=== PATIENT | female | born 1965 | race Caucasian/White ===

== ENCOUNTER 2017-02-10 15:12 | Outpatient (CLI) | payer OTHER, MEDICARE ==
--- NOTE | 2017-02-10 17:24 | MMO ---
BILATERAL MAMMOGRAMS: DATE: 02/10/17 HISTORY: Screening mammography. COMPARISON: Baseline study. FINDINGS: Scattered fibroglandular densities and benign-appearing calcifications are present. There is no latoya nant mass or suspicious calcifications. The study was evaluated with the assistance of computer-aided detection. IMPRESSION: BIRADS 1: Negative Suggest routine follow-up. POS: JAMEY
== END 2017-02-10 15:13 | disposition home or self-care (01) ==
LOC: MAMMO 15:12
PROVIDERS: ATTEND Family Medicine
DX: Z12.31 Encounter for screening mammogram for malignant neoplasm of breast (principal)
CPT/HCPCS: 77067; G0202

== ENCOUNTER 2017-06-05 16:30 | Outpatient (CLI) | payer MEDICARE, OTHER | END 2017-06-05 16:31 | disposition home or self-care (01) | LOC: BICRAD 16:30 | PROVIDERS: ATTEND Family Medicine | DX: M54.6 Pain in thoracic spine (principal) | CPT/HCPCS: 72072 ==

== ENCOUNTER 2017-06-29 16:22 | Outpatient (CLI) | payer MEDICARE | END 2017-06-29 16:23 | disposition home or self-care (01) | LOC: CTENTCT 16:22 | PROVIDERS: ATTEND Otolaryngology Plastic Surgery within the Head & Neck | DX: J32.9 Chronic sinusitis, unspecified (principal) | CPT/HCPCS: 70486 ==

== ENCOUNTER 2017-07-01 09:33 | Day surgery (SDC) | payer MEDICARE ==
[2017-06-30 16:37] VITALS: BMI 44.4
[2017-07-01] MEDS ORDERED: Lidocaine 1% w/Epinephrine 1:200K 30 ML VIAL ONE (09:43)
[2017-07-01] MEDS ORDERED: Oxymetazoline HCl 0.05% ( 15 ML ) ONE ×2 (09:43→10:14)
[2017-07-01] MEDS ORDERED: Midazolam HCl 2 mg/2 ml Vial ONE (09:52)
[2017-07-01] MEDS ORDERED: Fentanyl 100 MCG/2 ML VIAL ONE ×4 (09:52→12:41)
[2017-07-01] MEDS ORDERED: Albuterol Sulfate HFA (OR ONLY) ONE (10:14)
[2017-07-01 11:14] LABS: Anion Gap 13 mmol/L (10-20); BUN (Urea Nitrogen) 18 mg/dL (9.8-20.1); Calc. Creatinine Clearance 168 mL/min (70-130); Calcium 8.9 mg/dL (7.8-10.44); Carbon Dioxide 27 mmol/L (22-29); Chloride 105 mmol/L (98-107); Estimated GFR-MDRD 79; Glucose 89 mg/dL (70-105); Potassium 4.1 mmol/L (3.5-5.1); Sodium 141 mmol/L (136-145)
[2017-07-01] MEDS ORDERED: Albuterol Sulfate 2.5 mg/3 ml Neb NEB PRN (12:23)
[2017-07-01] MEDS ORDERED: Promethazine HCl 25 MG/ML VIAL IM/IV PRN (12:23)
[2017-07-01] MEDS ORDERED: Ondansetron HCl/PF 4 MG/2 ML Vial IVP PRN (12:23)
[2017-07-01] MEDS ORDERED: Non-Formulary Medication 1 EACH PO PRN (12:23)
[2017-07-01] MEDS ORDERED: Promethazine HCl 25 MG/ML VIAL ONE (12:29)
[2017-07-01] MEDS ORDERED: Lidocaine 1% PF 5 ML VIAL ONE (15:59)
[2017-07-01] MEDS ORDERED: PROPOFOL 200 MG/20 ML VIAL ONE (15:59)
[2017-07-01] MEDS ORDERED: diphenhydrAMINE 50 MG/ML VIAL ONE (15:59)
[2017-07-01] MEDS ORDERED: PHENYLEPHRINE-NS 100 MCG/ML 10 ML SYRINGE ONE (15:59)
[2017-07-01] MEDS ORDERED: Ondansetron HCl/PF 4 MG/2 ML Vial ONE (15:59)
[2017-07-01] MEDS ORDERED: Succinylcholine Chloride 20 MG/ML 10 ml SYRINGE FS ONE (15:59)
--- NOTE | 2017-07-02 17:32 | OP ---
The patient seen for chronic rhinosinusitis and nasal polyposis. PREOPERATIVE DIAGNOSES: 1. Chronic rhinosinusitis of the ethmoidal cells. 2. 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 3. Bilateral sinonasal polyposis, severe. POSTOPERATIVE DIAGNOSES: 1. Chronic rhinosinusitis of the ethmoidal cells. 2. 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 3. Bilateral sinonasal polyposis, severe. PROCEDURES: 1. Bilateral endoscopic sinus surgery, total ethmoidectomies. 2. Bilateral endoscopic sinus surgery, frontal sinusotomies. 3. Bilateral endoscopic sinus surgery, nasal polypectomy. SURGEON: Pranav Faith M.D. ESTIMATED BLOOD LOSS: 10 mL. COMPLICATIONS: None. ANESTHESIA: GETA. DESCRIPTION OF PROCEDURE: The patient was taken to the operating room and placed supine on the table . General endotracheal anesthesia was obtained by the Anesthesia staff. Tube was secured in the lef t lower lip. The patient was placed in the beach chair position. Afrin pledgets were then placed in the nasal cavity. Following this, the patient was prepped and draped for standard nasal procedure. The 0 degree endoscope was then advanced in the nasal cavity after Afrin pledgets were removed. 1% lidocaine with 1:100,000 epinephrine was injected via a 27 gauge needle into the lateral nasal wall a nd the remnant of the middle turbinates and nasal polyps bilaterally. Following this, the 0 degree m icrodebrider was used to remove nasal polyps and they completely obstructed the entire ethmoidal sinu ses. There was also residual bone remnants of the ethmoidal bulla and grand lamella area that were o pened. There was residual posterior ethmoidal and anterior bony cells causing obstruction which were removed using a biting Blakesley forceps and straight microdebrider. Following this, the 45 degree scope and the curved microdebrider were used to identify the frontal recess by removal of polyps. Th ere was remnant bone remaining in the frontal sinus causing obstruction of the frontal sinus ostia. This was removed using the curved microdebrider and upbiting Blakesley forceps. Following this, the thick gelatinous material was suctioned from the left frontal sinus. The nasal cavity was irrigated bilaterally. MeroPacks were placed in the middle meatus. The patient tolerated the procedure well.
--- NOTE | 2017-09-05 13:50 | EKG ---
Test Reason : PREOP Blood Pressure : / mmHG Vent. Rate : 076 BPM Atrial Rate : 076 BPM P-R Int : 176 ms QRS Dur : 094 ms QT Int : 408 ms P-R-T Axes : 057 063 027 degrees QTc Int : 459 ms Normal sinus rhythm Normal ECG When compared with ECG of 09-DEC-2016 20:58, QT has lengthened Confirmed by JOBY VAZQUEZ MD ([id number]) on 09/05/2017 1:49:47 PM Referred By: BETTY Confirmed By:JOBY VAZQUEZ MD
== END 2017-07-01 14:00 | disposition home or self-care (01) ==
LOC: SDC 09:33
PROVIDERS: ATTEND Otolaryngology Plastic Surgery within the Head & Neck
PROC: 09BV8ZZ Excision of Left Ethmoid Sinus, Via Natural or Artificial Opening Endoscopic (ICD-10-PCS; principal; 2017-07-01)
PROC: 09BU8ZZ Excision of Right Ethmoid Sinus, Via Natural or Artificial Opening Endoscopic (ICD-10-PCS; 2017-07-01)
PROC: 09BT8ZZ Excision of Left Frontal Sinus, Via Natural or Artificial Opening Endoscopic (ICD-10-PCS; 2017-07-01)
PROC: 09BS8ZZ Excision of Right Frontal Sinus, Via Natural or Artificial Opening Endoscopic (ICD-10-PCS; 2017-07-01)
DX: J32.8 Other chronic sinusitis (principal); J33.8 Other polyp of sinus; G43.909 Migraine, unspecified, not intractable, without status migrainosus; K21.9 Gastro-esophageal reflux disease without esophagitis; J44.9 Chronic obstructive pulmonary disease, unspecified; M19.90 Unspecified osteoarthritis, unspecified site; F31.9 Bipolar disorder, unspecified; M79.7 Fibromyalgia; G47.33 Obstructive sleep apnea (adult) (pediatric); I10 Essential (primary) hypertension; F17.210 Nicotine dependence, cigarettes, uncomplicated; Z86.73 Personal history of transient ischemic attack (TIA), and cerebral infarction without residual deficits; Z79.51 Long term (current) use of inhaled steroids; Z79.899 Other long term (current) drug therapy; Z88.8 Allergy status to other drugs, medicaments and biological substances; Z88.1 Allergy status to other antibiotic agents; Z88.0 Allergy status to penicillin; Z91.040 Latex allergy status; Z80.3 Family history of malignant neoplasm of breast; Z98.84 Bariatric surgery status; Z90.49 Acquired absence of other specified parts of digestive tract; Z90.710 Acquired absence of both cervix and uterus; Z98.1 Arthrodesis status; Z98.890 Other specified postprocedural states
CPT/HCPCS: 80048; 85014; 93005; 93010; 96374; J1200; J2001; J2250; J2405; J2550; J2704; J3010

== ENCOUNTER 2017-07-18 12:38 | Emergency (ER) | payer MEDICARE ==
[2017-07-18] MEDS ORDERED: Aspirin 325 MG TAB ONE (13:19)
== END 2017-07-18 13:21 | disposition home or self-care (01) ==
LOC: SCSER 12:38
DX: L03.116 Cellulitis of left lower limb (principal); J44.9 Chronic obstructive pulmonary disease, unspecified; F41.9 Anxiety disorder, unspecified; F31.9 Bipolar disorder, unspecified; Z87.891 Personal history of nicotine dependence
CPT/HCPCS: 99283

== ENCOUNTER 2017-08-01 14:26 | Inpatient (IN) | payer MEDICARE ==
[2017-08-01] MEDS ORDERED: Ketorolac Tromethamine 30 MG/ML VIAL ONE (14:53)
[2017-08-01] MEDS ORDERED: Metoclopramide HCl 10 MG/2 ML VIAL ONE (14:53)
[2017-08-01] MEDS ORDERED: diphenhydrAMINE 50 MG/ML VIAL ONE (14:53)
[2017-08-01] MEDS ORDERED: methylPREDNISolone Sod Succ/PF 125 MG/2 ML VIAL ONE (15:35)
[2017-08-01] MEDS ORDERED: Magnesium Sulfate 2 GM/NS 0.9% 50 ML BAG ONE (15:35)
[2017-08-01 16:25] LABS: Anion Gap 15 mmol/L (10-20); BUN (Urea Nitrogen) 43 mg/dL (9.8-20.1); Calc. Creatinine Clearance 0 mL/min (70-130); Calcium 8.4 mg/dL (7.8-10.44); Carbon Dioxide 23 mmol/L (22-29); Chloride 107 mmol/L (98-107); Estimated GFR-MDRD 51; Glucose 101 mg/dL (70-105); Potassium 3.9 mmol/L (3.5-5.1); Sodium 141 mmol/L (136-145)
[2017-08-01 18:13] LABS: #Basophils 0.2 thou/uL (0.0-0.2); #Eosinphils 0.7 thou/uL (0.0-0.7); #Monocytes 0.7 thou/uL (0.11-0.59); #Neutrophils 3.7 thou/uL (1.40-6.50); %Basophils 2.2 % (0.0-1.0); %Eosinophils 10.2 % (0.0-10.0); %Lymphocytes 26.9 % (21.0-51.0); %Monocytes 9.9 % (0.0-10.0); %Neutrophils 50.8 % (42.0-75.0); Hemoglobin 12.7 g/dL (12.0-16.0); Mean Corpuscular HGB CONC 33.4 g/dL (32.0-36.0); Mean Corpuscular Hemoglobin 30.1 pg (27.0-31.0); Mean Corpuscular Volume 90.1 fl (81.0-99.0); Mean Platelet Volume 7.5 fL (7.4-10.4); Platelet Count 215 thou/uL (130-400); RBC Distribution Width 12.8 % (11.5-14.5); White Blood Cell (WBC) Count 7.4 thou/uL (4.8-10.8)
[2017-08-01 19:12] LABS: Bilirubin Negative (Negative); Blood, Urine Trace (Negative); Clarity Cloudy (Clear); Glucose, Urine (Dipstick) Negative (Negative); Leukocyte Large (Negative); Nitrite Negative (Negative); Protein, Urine (Dipstick) Negative (Neg-Trace); Urobilinogen 0.2 mg/dL (0.2-1.0); pH, Urine 5.5 (5.0-9.0)
[2017-08-01 19:17] LABS: Bacteria/HPF 3+ HPF (None Seen); Squamous Epithelial 0-3 HPF (0-3)
[2017-08-01] MEDS ORDERED: Ondansetron HCl/PF 4 MG/2 ML Vial IVP PRN (20:05)
[2017-08-01] MEDS ORDERED: Ondansetron ODT 4 MG TAB SL PRN (20:05)
[2017-08-01] MEDS ORDERED: Acetaminophen 325 MG TAB PO PRN (20:05)
--- NOTE | 2017-08-01 21:40 | HP ---
PRIMARY CARE PHYSICIAN: Dr. Kaiden Bravo. CHIEF COMPLAINT: Headache and weakness. HISTORY OF PRESENT ILLNESS: This is a 52-year-old obese female with multiple medical problems who pr esented to the Emergency Department with intractable headache, pain, overall weakness, difficulty sta nding and worsening debility, presented to the Emergency Department after worsening headache, nausea, and weakness. The patient has a long history of persistent nausea for the past 2 years, and she yvette es daily Phenergan in addition to her regular maintenance medicines for her persistent nausea. She h ad seen a Gastroenterology in the past and states that she has had relief of her nausea with followin g EGD. The patient states that she was in usual state of health about 2-3 days ago, she developed a typical migraine. She usually has some visual changes with the migraines or nausea worsens. At this time, she developed increased weakness, needing a walker to get around the house. Yesterday, she co ntinued to have increased weakness, had difficulty getting around the house, had no falls, no loss of consciousness. She did vomit one time. Due to the persistent headache and weakness, she presented to the Emergency Department today for further evaluation. In the ED, she had her evaluation per the ER physician states her labs were normal, but she continues to feel badly and did not feel safe going home. She is now being admitted for further evaluation and treatment of her persistent headache and increased weakness. PAST MEDICAL HISTORY: Asthma, gastroesophageal reflux disease, persistent nausea, migraine headache, history of COPD, history of gastric dumping, Raynaud's phenomenon, chronic pain, and bipolar depress ion. MEDICATIONS: Include Benadryl 25 mg 1-2 daily, Flonase nasal spray 2 times a day, Symbicort 160/4.5 two puffs b.i.d., Zyrtec 10 mg daily, Latuda 120 mg daily, Lyrica 200 mg 3 times a day, montelukast 1 0 mg daily, Dexilant 60 mg daily, Bentyl 10 mg 4 times a day, Cogentin 2 mg 3 times a day, chlorzoxaz one 500 mg 3 times a day, hydroxyzine 60 mg 3 times a day, Phenergan 25 mg 2-3 times daily rectally, Fosteum 1 tab 2 times a day, Mucinex p.r.n., blair daily, Mag 64 400 mg daily, fish oil 1000 mg b.i. d., albuterol inhaler p.r.n., DuoNebs p.r.n., ergotamine p.r.n. ALLERGIES: LATEX, LEVAQUIN, PENICILLIN, QUINOLONE, STEROIDS, TRIPTAN. PAST SURGICAL HISTORY: Bilateral knee surgery, bilateral wrist surgery, gastric surgery, hysterectom y, C-spine, C4 and 5 fusion in 05/2015, left elbow repair in 2016, cholecystectomy, ulnar surgery rig ht elbow, and sinus surgery. SOCIAL HISTORY: Denies alcohol, denies drug use. Former tobacco, but quit smoking 10 years ago. Gloria ves at home with her . REVIEW OF SYSTEMS: As per the history of present illness. GENERAL: Denies any recent fevers or chills. HEENT: Denies cough, congestion, or runny nose. Her allergies seem to be under control. CARDIAC: Denies chest pain, shortness of breath or palpitations. PULMONARY: Denies cough or hemoptysis. Her asthma is under control as well. GASTROINTESTINAL: As per the history of present illness. No abdominal pain, but admits to persisten t nausea, occasional vomiting, and reflux symptoms. GENITOURINARY: Denies any pain or burning when she urinates. Denies hematuria. NEUROLOGIC: As per the history of present illness with increased weakness. PHYSICAL EXAMINATION: VITAL SIGNS: In the ER, temperature 98.1, pulse of 81, respirations 18-20, blood pressure 107/53, pu lse ox is 96% on room air. GENERAL: She is awake and alert. She is in no acute distress. She is cooperative for the exam. Mu cosa is moist. NECK: Supple. No JVD, adenopathy or bruits. HEART: Regular rate and rhythm. LUNGS: Clear bilaterally. No wheeze, rales or rhonchi. ABDOMEN: Obese, soft, nontender, nondistended. No hepatosplenomegaly. EXTREMITIES: No clubbing, cyanosis or edema, 2+ peripheral pulses bilaterally. NEUROLOGIC: Strength is 5/5 in upper and lower extremities. She ambulated in the levi with me with an unsteady gait, but no falls. No lateralizing signs. LABORATORY DATA: Urinalysis with trace blood, positive leukocyte esterase, too numerous to count whi te blood cells, 3+ bacteria. White blood cell count 7.4 thousand, hemoglobin and hematocrit 12.7 and 37.8, platelets of 215. Sodium 141, potassium 3.9, chloride 107, CO2 of 23, BUN and creatinine 43 a nd 1.12 with a GFR of 51. Serum glucose of 101, calcium of 84. ASSESSMENT AND PLAN: This is a 52-year-old female patient of Dr. Kaiden Bravo with multiple medic al problems now with increased headache and weakness. 1. Urinary tract infection. We will start antibiotics which may help with her weakness as well as h er poor p.o. intake. 2. Mild dehydration. We will start IV fluid replacement and watch her fluid balance. 3. Migraine headache. We will continue her usual medications, this seems to be improving at this ti me. 4. Bipolar depression. This has been worked up extensively in the past, both locally and in [place] with several different diagnoses that have been entertained and worked up. It seems most likely joy t she does have a dumping syndrome following her bariatric procedure years ago. I will continue medi cations as per GI and Dr. Bravo. 5. Bipolar depression. She is on Latuda. She will have to follow up with psychiatry. She may need to adjust that medication due to her increased nausea and weakness as well as it can have side effec ts. 6. Chronic pain. We will watch closely for narcotic medications due to her multiple other medicatio ns as well. 7. Weakness and deconditioning. She has had stays in inpatient rehab in the past. According to Dr. Bravo, we will initiate physical therapy and walking program as well. Dr. Braov has had ailyn rns about her taking antipsychotics with signs of tardive dyskinesia. She seemed to be controlled on the Cogentin at this time and will continue that as well.
[2017-08-01 21:50] VITALS: BMI 44.9
[2017-08-01] MEDS: Sodium Chloride 0.9% 1,000 ML IV SCH (22:52)
[2017-08-02] MEDS: Promethazine HCl 25 MG SUPP PR PRN ×3 (04:18→20:45)
[2017-08-02 05:48] LABS: ALT (SGPT) 19 U/L (8-55); AST (SGOT) 27 U/L (5-34); Albumin 3.5 g/dL (3.5-5.0); Alkaline Phosphatase 117 U/L (40-150); Anion Gap 15 mmol/L (10-20); BUN (Urea Nitrogen) 35 mg/dL (9.8-20.1); Bilirubin, Total 0.4 mg/dL (0.2-1.2); Calc. Creatinine Clearance 146 mL/min (70-130); Calcium 8.7 mg/dL (7.8-10.44); Carbon Dioxide 22 mmol/L (22-29); Chloride 109 mmol/L (98-107); Estimated GFR-MDRD 66; Globulin 3.4 g/dL (2.4-3.5); Glucose 88 mg/dL (70-105); Potassium 4.3 mmol/L (3.5-5.1); Protein, Total 6.9 g/dL (6.0-8.3); Sodium 142 mmol/L (136-145)
[2017-08-02] MEDS: Sodium Chloride 0.9% 1,000 ML IV SCH ×2 (08:27→16:12)
[2017-08-02] MEDS: Pregabalin 50 MG CAP PO SCH ×3 (08:56→20:38)
[2017-08-02] MEDS: Dicyclomine 10 MG CAP PO SCH ×4 (08:56→20:40)
[2017-08-02] MEDS: Benztropine 1 MG TAB PO SCH ×3 (08:56→20:39)
[2017-08-02] MEDS: Nitrofurantoin Monohyd/M-Cryst 100 MG CAP PO SCH ×2 (08:56→20:40)
[2017-08-02] MEDS ORDERED: Lurasidone HCl 40 MG TABLET PO SCH (09:00)
[2017-08-02] MEDS: HYDROmorphone 2 MG TAB PO PRN ×2 (10:44→18:59)
--- NOTE | 2017-08-02 12:41 | ULT ---
BILATERAL CAROTID DUPLEX ULTRASOUND INCLUDING COLOR AND SPECTRAL DOPPLER IMAGING: HISTORY: A 52-year-old female with a history of syncope. FINDINGS: Minimal intimal thickening and very mild plaque noted in the origins of the right and left ICA and CC A arteries. PSV right ICA 89 cm/s, EDV 34 cm/s. ICA/CCA ratio 0.8. PSV left ICA 81 cm/s, EDV 36 cm/s. ICA/CCA ratio 0.5. Vertebral flow is antegrade. IMPRESSION: Very mild intimal thickening and plaque, evidence for carotid artery arteriosclerotic disease. POS: JAMEYH
--- NOTE | 2017-08-02 13:41 | PRG ---
DATE OF SERVICE: 08/02/2017 SUBJECTIVE: Patient is complaining of a worsening headache. No relief with her ergotamine or other medicines. She is not able to have her typical pain medicine with a Nucynta due to her being out of prescriptions and not being on stock at the hospital. The patient states that she has had relief wit h Dilaudid in the past. She walked in the room with therapy. She continued to feel weak, but did no t fall. No dizziness. She continued to feel nauseous, but some improvement with IV fluids as well a s the Phenergan. She does not feel comfortable going home at this time. OBJECTIVE: VITAL SIGNS: Temperature 98.3, pulse is 71, respirations 16, blood pressure 113/78, pulse ox is 92%- 94% on room air. GENERAL: She is awake and alert, in no acute distress. Speech is clear. NECK: Supple. HEART: Regular rate and rhythm. LUNGS: Clear. ABDOMEN: Obese, soft, diffuse tenderness, no rebound, no guarding. EXTREMITIES: 2+ peripheral pulses bilaterally. LABORATORY DATA: Reviewed. Sodium 142, potassium 4.3, chloride 102, CO2 of 22, BUN and creatinine 3 5.89 with a GFR of 66, which is improved from 51 yesterday. Insulin level was only 8.2, calcium of 8 .7. Other liver enzymes are normal. Urinalysis positive for leukocyte esterase, positive for bacter ia, trace blood. Urine cultures are pending. Carotid Doppler is pending at this time as well. ASSESSMENT AND PLAN: 1. This is a 52-year-old female patient with multiple medical problems now with intractable migraine headache and increased weakness, near syncope, urinary tract infection. 2. Intractable migraine headache. We will try Dilaudid p.r.n. headache. Consult Neurology for furt her evaluation and treatment plan. 3. Urinary tract infection. We will continue Macrobid. We are waiting for cultures. 4. Mild dehydration is improved. We will continue to follow closely with her p.o. intake. 5. Bipolar depression. I had a discussion with her about medications. She was recently started on Latuda by her psychiatrist and may be related to her symptoms getting worse. We will stop the Latuda at this time and she has done well with lithium in the past as well and then will make consideration s of giving a trial of lithium once the Latuda is washed out. 6. Weakness and deconditioning. We will continue walking program and therapy. Hopefully, will impr ove with stopping the Latuda as well.
--- NOTE | 2017-08-02 14:55 | CON ---
DATE OF CONSULTATION: 08/02/2017 CHIEF COMPLAINT: Headache. HISTORY OF PRESENT ILLNESS: The patient reports she has had sudden onset headache yesterday. Usuall y, she has had migraine, history of migraines since age 11 and these were mostly associated with her menstrual periods over the years. She got used to the headaches and then about a few years ago, she decided to have hysterectomy in 2012 to make sure that she no longer has headaches. She went ahead a nd had a hysterectomy, but the headaches have gotten worse and she has persistent headaches on and of and she sees Dr. Senhtil Mitchell for her migraine headaches. The typical migraine she describes is on the right side of her head with subsequent generalization and she has photophobia and phonophobia wi th this. At this time, she came to the hospital because she had a sudden onset headache yesterday wh en she was having a good day and she had a headache right in the frontal area and she stated "if some one would cut my head off I would have offered that." It was a severe headache, which is unlike her typical migraines and it seemed to spread very quickly throughout her head and she came immediately t o the ER. She has known bipolar disorder as well and reports failure of Topamax, Lamictal and Depako te. She said Topamax made her have more migraines, Depakote caused her to throw up and she did not h ave any benefit from the Lamictal. The patient also felt generalized weakness with this episode. Aristeo lundberg stated to me that the only narcotic opiate seems to help and she was recently weaned off of all opi ates. PREVIOUS MEDICAL HISTORY: Significant for asthma, gastroesophageal reflux disease, nausea, migraine headache, COPD and she had gastric sleeve surgery and has side effects from that. CURRENT MEDICATIONS: At home, she takes Benadryl, Flonase, Symbicort, and Zyrtec. She is being wean ed off of Latuda due to tardive dyskinesia. Lyrica, Dexilant, Bentyl, Cogentin, chlorzoxazone, hydro xyzine, and Phenergan. ALLERGIES: She has allergic to LATEX, LEVAQUIN, QUINOLONE, STEROIDS, TRIPTAN and PENICILLINS. PAST SURGICAL HISTORY: Hysterectomy in 2012, C-spine surgery in 2016, left elbow repair, gastric sle jose surgery, knee surgeries bilaterally, wrist surgery and sinus surgery. FAMILY HISTORY: Positive for strokes. Her mother recently met her 2 other siblings, who she did not even know existed and she did genealogical studies and met them both recently and they know that the re is history of stroke in her family. Her grandmother also from a stroke. LABORATORY REPORTS: White count 7.4, hemoglobin 12.7, hematocrit 37.8, platelets 215. Chemistries: Sodium 142, potassium 4.3, chloride 109, bicarbonate 22, BUN 35, creatinine 0.89, glucose 88, ALT 11 9, AST 27, alkaline phosphatase 117, albumin 3.5, globulin 3.4 and her insulin level was 8.2. No amarilis ging studies available at this time. PHYSICAL EXAMINATION: VITAL SIGNS: Blood pressure 113/78, temperature 98.3, pulse 71, respiratory rate 16. GENERAL APPEARANCE: Well-built, well-nourished, slightly overweight lady. CHEST: Clear vesicular breathing. CARDIOVASCULAR: S1, S2 heard, no murmurs. Carotids are clear. ABDOMEN: Soft, nontender. NEUROLOGIC: Higher intellectual functions normal. Cranial nerves II-XII normal. Fundus exam normal . Normal extraocular movements. Normal sensation of face bilaterally. No facial asymmetry noted. Normal elevation of palate. Normal hearing to finger rub and tongue midline. Motor Exam: Bulk norm al, tone normal, strength 5/5 in iliopsoas, hamstrings, quadriceps, ankle dorsiflexion, plantar flexi on, deltoid, triceps, biceps, wrist extension and flexion, finger extension and flexion bilaterally. Sensory Exam: Normal touch, pinprick, proprioception, vibration, temperature and deep tendon reflex es were absent. Cerebellar: Normal [id number]-[id number] and [id number]. IMPRESSION: The patient is a 52-year-old lady with a history of longstanding migraine headaches. Aristeo lundberg had a sudden onset new headache, which was intense much different and severe compared to her usual headaches even threw up yesterday and had generalized feeling of weakness and inability to do much, w aixah brought her to the hospital. Her examination is normal neurologically. At this time, she seems to have an atypical headache, which is very much different from right frontal headaches, which are u sually associated with her migraine. RECOMMENDATIONS: 1. MRI of the brain. 2. She reports her pain is relieved with the current oral medicines she is receiving particularly Di laudid and the combination and we can continue that for now due to her failure with all the other med ications in the past. 3. I will have Neurology followup on this patient tomorrow.
[2017-08-02] MEDS ORDERED: Prochlorperazine Maleate 5 MG TAB PO PRN (15:11)
[2017-08-02] MEDS ORDERED: Montelukast Sodium 10 mg Tablet PO SCH (21:00)
[2017-08-02] MEDS: Mometasone/Formoterol 120 PUFF INHALER INH SCH (22:10)
[2017-08-03] MEDS: Sodium Chloride 0.9% 1,000 ML IV SCH ×3 (04:32→15:49)
[2017-08-03] MEDS: Promethazine HCl 25 MG SUPP PR PRN ×3 (05:35→16:45)
[2017-08-03 05:37] LABS: #Basophils 0.1 thou/uL (0.0-0.2); #Eosinphils 0.8 thou/uL (0.0-0.7); #Lymphocytes 2.2 thou/uL (1.20-3.40); #Monocytes 0.7 thou/uL (0.11-0.59); #Neutrophils 2.6 thou/uL (1.40-6.50); %Basophils 1.1 % (0.0-1.0); %Eosinophils 12.6 % (0.0-10.0); %Lymphocytes 34.6 % (21.0-51.0); %Monocytes 11.2 % (0.0-10.0); %Neutrophils 40.6 % (42.0-75.0); Hemoglobin 12.4 g/dL (12.0-16.0); Mean Corpuscular HGB CONC 32.8 g/dL (32.0-36.0); Mean Corpuscular Hemoglobin 31.4 pg (27.0-31.0); Platelet Count 217 thou/uL (130-400); RBC Distribution Width 12.5 % (11.5-14.5); Red Blood Cell (RBC) Count 3.95 mill/uL (4.20-5.40); White Blood Cell (WBC) Count 6.5 thou/uL (4.8-10.8)
[2017-08-03] MEDS: HYDROmorphone 2 MG TAB PO PRN ×2 (05:39→13:35)
[2017-08-03 06:01] LABS: Anion Gap 11 mmol/L (10-20); BUN (Urea Nitrogen) 22 mg/dL (9.8-20.1); Calc. Creatinine Clearance 164 mL/min (70-130); Calcium 8.5 mg/dL (7.8-10.44); Carbon Dioxide 22 mmol/L (22-29); Chloride 110 mmol/L (98-107); Estimated GFR-MDRD 76; Glucose 101 mg/dL (70-105); Potassium 4.2 mmol/L (3.5-5.1); Sodium 139 mmol/L (136-145)
[2017-08-03] MEDS: Mometasone/Formoterol 120 PUFF INHALER INH SCH (06:10)
[2017-08-03 07:54] VITALS: BP 128/74; TEMP 97.6
[2017-08-03] MEDS: Benztropine 1 MG TAB PO SCH ×2 (09:47→16:40)
[2017-08-03] MEDS: Nitrofurantoin Monohyd/M-Cryst 100 MG CAP PO SCH (09:48)
[2017-08-03] MEDS: Pregabalin 50 MG CAP PO SCH ×2 (09:48→16:38)
[2017-08-03] MEDS: Dicyclomine 10 MG CAP PO SCH ×3 (09:48→16:44)
--- NOTE | 2017-08-03 11:38 | MRI ---
BRAIN MRI WITH AND WITHOUT CONTRAST: DATE: 08/03/17. COMPARISON: None. HISTORY: Severe headaches, history of migraines. TECHNIQUE: Multiplanar, multisequence MR imaging of the brain obtained with and without contrast. FINDINGS: The diffusion weighted imaging demonstrates no evidence for acute infarction. Blooming artifact in the globus pallidus noted bilaterally suggesting calcification, stable. No evid ence for intracranial hemorrhage. There is mucosal thickening involving the frontal sinuses. There is opacification of bilateral ethmo id air cells, and there is maxillary sinus mucosal thickening, stable. The patient appears status po st paranasal sinus surgery, incompletely assessed on this exam. There are a few opacified mastoid air cells present inferiorly on the left, stable. There is no midline shift, mass effect, or ventricular enlargement seen. Arterial flow voids at the axial level of the skull base appear unremarkable on the T2 weighted imagi ng. The postcontrast imaging demonstrates no abnormal enhancement within the brain parenchyma. IMPRESSION: No acute findings. Chronic findings as detailed above. POS: JAMEYH
--- NOTE | 2017-08-04 13:50 | DIS ---
CHIEF COMPLAINT: Headache, fatigue. PRIMARY CARE PHYSICIAN: Kaiden Bravo M.D. PRESENTING HISTORY OF PRESENT ILLNESS: The patient has history of migrainous headaches, moderately c ontrolled with ergotamine; however, this headache felt different to her. She was concerned for a pos sible stroke and presented to the emergency department for evaluation where she underwent a carotid D oppler and MRI without specific findings. Neurology was consulted without additional changes to the patient's medication list. The patient with a longstanding history of polypharmacy. The patient is s tatus post occipital nerve ablation, underwent an experimental device trials in [place] with mixed re sults. The patient did not qualify for long term care administrator placement of that device for her chronic migraines. On laboratory results the patient was found to have a UTI with acute dehydration and acute kidney inj ury. This was markedly improved with IV fluids. The patient was treated with Macrobid. Cultures marin re out E. coli somewhat resistant to ampicillin and Bactrim, sensitive to Macrobid, cephalosporins, L evaquin. The patient with improved strength prior to discharge, resolved headache following IV fluid administration. CONSULTATIONS: Neurology, Dr. Richey. DISCHARGE DIAGNOSES: 1. Urinary tract infection. 2. Acute kidney injury. 3. Bipolar disorder. 4. Migraines. 5. Chronic obstructive pulmonary disease. DISCHARGE MEDICATIONS: Included continuation of home medications completion of Macrobid for 7 days. I refilled the patient's Dexilant and ergotamine. FOLLOWUP: The patient to follow up with myself, Dr. Kaiden Bravo in 7-10 days. Follow up with Ne urology and next month as needed. DIET: Protein supplement, regular otherwise. Suggested a caloric intake of [phone]. DISCHARGE CONDITION: Good. DISCHARGE INSTRUCTIONS: The patient is to resume outpatient physical therapy. She is being followed by Dr. Aceves on an outpatient basis for rehabilitation services.
== END 2017-08-03 19:20 | disposition home or self-care (01) | DRG 690 ==
LOC: SCSER 14:26 → T4-B 18:08 → OBSVTOIN 08-02 10:10
PROVIDERS: ADMIT Family Medicine; ATTEND Family Medicine
DX: N39.0 Urinary tract infection, site not specified (principal); E66.01 Morbid (severe) obesity due to excess calories; Z68.41 Body mass index [BMI] 40.0-44.9, adult; G43.909 Migraine, unspecified, not intractable, without status migrainosus; E86.0 Dehydration; J45.909 Unspecified asthma, uncomplicated; K21.9 Gastro-esophageal reflux disease without esophagitis; J44.9 Chronic obstructive pulmonary disease, unspecified; G89.29 Other chronic pain; F32.9 Major depressive disorder, single episode, unspecified; Z87.891 Personal history of nicotine dependence; K91.1 Postgastric surgery syndromes; Y83.8 Other surgical procedures as the cause of abnormal reaction of the patient, or of later complication, without mention of misadventure at the time of the procedure; R53.81 Other malaise
CPT/HCPCS: 36415; 70553; 80048; 80053; 81003; 81015; 83525; 85025; 87077; 87086; 87186; 93880; 94640; 96365; 96367; 96375; J1200; J1885; J2765; J2930; J3475; J7620; Q0164

== ENCOUNTER 2017-11-27 06:10 | Observation (INO) | payer MEDICARE ==
[2017-11-26 16:06] VITALS: BMI 43.4
--- NOTE | 2017-11-26 23:27 | HP ---
HISTORY OF PRESENT ILLNESS: Ms. Obrien is known to us for previous evaluations and surgeries for both cervical complaint, lumbar complaints and ulnar neuropathy. She returns now to discuss continue d lower back pain, it has been treated by epidural steroid injections and physical therapy as well as managed with pain medication from her primary care physician. This is in the setting of an MRI from [place] that reveals high grade stenosis at L2-L3 with motion on flexion extension views. She ho pes to treat this surgically at this time. PAST MEDICAL HISTORY: Significant for allergies, asthma, gastroesophageal reflux disease, bipolar di sorder, fibromyalgia, chronic pain disorder, intractable migraines. PAST SURGICAL HISTORY: Cholecystectomy, knee surgery, wrist surgery, ACDF, right shoulder surgery, l eft hand surgery, hysterectomy, ulnar nerve decompression, gastric bypass, occipital nerve trial. CURRENT MEDICATIONS: Zyrtec, Symbicort, Dexilant, Carafate, Latuda, Singulair, Flonase, Cozaar, Zofr an, tapentadol, ergotamine, pregabalin, diclofenac, clonazepam. ALLERGIES: HYDROCODONE, PENICILLIN, PREDNISONE. PHYSICAL EXAMINATION: NEUROLOGIC: Alert and oriented x3. Gait is antalgic and slow. Lower extremity motor exam is normal . ASSESSMENT: Lumbar stenosis with back pain and claudication. PLAN: Dr. Guillen met with the patient, reviewed imaging and advocated for an L2-L3 decompression and fusion. He explained to the patient the risks, benefits, alternatives of the procedure. The patient expressed understanding and would like to move forward with surgery as discussed. I do believe the patient is mentally competent and capable of making medical decisions for herself and we will move fo rward with surgery as planned.
[2017-11-27] MEDS ORDERED: Thrombin 5000 UNITS/5 ML VIAL ONE (06:45)
[2017-11-27] MEDS ORDERED: Bupivacaine HCl 0.5%/Epinephrine 1:200,000/PF 30 ml Vial ONE (06:45)
[2017-11-27] MEDS ORDERED: Fentanyl 100 MCG/2 ML VIAL ONE ×4 (06:46→10:19)
[2017-11-27] MEDS ORDERED: Midazolam HCl 2 mg/2 ml Vial ONE (06:50)
[2017-11-27] MEDS ORDERED: Morphine 10 MG/ML VIAL ONE (09:00)
[2017-11-27] MEDS ORDERED: diphenhydrAMINE 50 MG/ML VIAL IVP PRN (09:27)
[2017-11-27] MEDS ORDERED: Mag-Al 1200 mg/1200 mg/30 ML UDCUP PO PRN (09:27)
[2017-11-27] MEDS ORDERED: Bisacodyl 10 MG SUPP PR PRN (09:27)
[2017-11-27] MEDS ORDERED: Ketorolac Tromethamine 30 MG/ML VIAL IVP PRN (09:27)
[2017-11-27] MEDS ORDERED: Acetaminophen 325 MG TAB PO PRN (09:27)
[2017-11-27] MEDS ORDERED: fentaNYL 50 mcg/hour Patch TD SCH (09:30)
[2017-11-27] MEDS ORDERED: Furosemide 20 MG TAB PO PRN (09:30)
[2017-11-27] MEDS ORDERED: Prochlorperazine Maleate 5 MG TAB PO PRN (09:30)
--- NOTE | 2017-11-27 09:34 | OP ---
DATE OF PROCEDURE: 11/27/2017 SURGEON: Julio Guillen M.D. LINE APPLIANCE ASSEMBLER: Maico Barber PA-C. INDICATION: Pain. DIAGNOSES: Lumbar lateral recess stenosis, lumbar degenerative disk disease, back pain. PROCEDURE: Lumbar L2-3 decompression, posterolateral instrumented fusion, placement of allograft, pl acement of autograft. ANESTHESIA: General. TECHNIQUE: The patient was brought into the operating room and placed under general anesthesia. She was flipped from a supine or prone position on the operating room table. A linear incision was plan modesto over the L2-3. After prepping and draping and after an appropriate pause, the incision was creat ed. The soft tissues were swept away from midline. A self-retaining retractor was placed in the wou nd for optimal exposure. After confirming appropriate level with C-arm fluoroscopy facetectomies wer e performed at L2-3 bilaterally. The L2 and L3 pedicles could be visualized and palpated as could th e exiting and descending nerve roots. We then placed pedicle screws in the pedicles bilaterally at L 2 and L3. An intraoperative 3-D CT scan was performed to ensure adequate placement of hardware. Koffi s were then placed across the screw heads and final tightened with set screws. Allograft and autogra ft material was placed in the lateral confines of the instrumentation construct. Wound was irrigated . Hemostasis was maintained throughout. The wound was then closed in anatomic layers and a pressure dressing was applied. There were no known procedural complications.
[2017-11-27] MEDS ORDERED: CAFFEINE PO PRN (11:30)
[2017-11-27] MEDS ORDERED: ERGOTAMINE TARTRATE PO PRN (11:30)
[2017-11-27 11:51] LABS: ALT (SGPT) 28 U/L (8-55); AST (SGOT) 23 U/L (5-34); Albumin 3.6 g/dL (3.5-5.0); Alkaline Phosphatase 117 U/L (40-150); Anion Gap 9 mmol/L (10-20); BUN (Urea Nitrogen) 14 mg/dL (9.8-20.1); Bilirubin, Total 0.3 mg/dL (0.2-1.2); Calc. Creatinine Clearance 146 mL/min (70-130); Calcium 8.7 mg/dL (7.8-10.44); Carbon Dioxide 26 mmol/L (22-29); Chloride 107 mmol/L (98-107); Estimated GFR-MDRD 69; Globulin 2.4 g/dL (2.4-3.5); Glucose 123 mg/dL (70-105); Potassium 3.4 mmol/L (3.5-5.1); Sodium 139 mmol/L (136-145)
[2017-11-27] MEDS: Sodium Chloride 0.9% 1,000 ML IV SCH ×2 (12:25→22:49)
[2017-11-27] MEDS ORDERED: PROPOFOL 200 MG/20 ML VIAL ONE (13:43)
[2017-11-27] MEDS ORDERED: Ketorolac Tromethamine 30 MG/ML VIAL ONE (13:43)
[2017-11-27] MEDS ORDERED: Glycopyrrolate 0.2 MG/ML 5 ML SYRINGE ONE (13:43)
[2017-11-27] MEDS ORDERED: Lidocaine 1% PF 5 ML VIAL ONE (13:43)
[2017-11-27] MEDS ORDERED: Ondansetron HCl/PF 4 MG/2 ML Vial ONE (13:43)
[2017-11-27] MEDS: Dicyclomine 10 MG CAP PO SCH ×3 (14:41→21:10)
[2017-11-27] MEDS: hydrOXYzine 25 MG TAB PO SCH ×2 (14:41→21:08)
[2017-11-27] MEDS: Benztropine 1 MG TAB PO SCH ×2 (16:14→21:09)
[2017-11-27] MEDS: Cyclobenzaprine 10 MG TAB PO PRN (17:47)
[2017-11-27] MEDS: Ondansetron HCl/PF 4 MG/2 ML Vial IVP PRN (17:47)
[2017-11-27] MEDS: Mometasone/Formoterol 120 PUFF INHALER INH SCH (19:58)
[2017-11-27] MEDS: Montelukast Sodium 10 mg Tablet PO SCH (21:08)
[2017-11-27] MEDS: Ascorbic Acid 500 mg Chewable Tablet PO SCH (21:08)
[2017-11-27] MEDS: guaiFENesin ER 600 MG TAB PO SCH (21:08)
[2017-11-27] MEDS: Fish Oil 1,000 MG CAP PO SCH (21:09)
[2017-11-27] MEDS: Lithium Carbonate 150 MG CAP PO SCH (21:10)
[2017-11-27] MEDS: Acetylcysteine 20% 200 MG/ML 30 ML VIAL PO SCH (21:10)
[2017-11-27] MEDS ORDERED: PROVENTIL INHALER 6.7 G (200 INHALATIONS) INH PRN (21:23)
[2017-11-28] MEDS: Cyclobenzaprine 10 MG TAB PO PRN (04:43)
[2017-11-28 05:35] LABS: #Eosinphils 0.2 thou/uL (0.0-0.7); #Monocytes 1.2 thou/uL (0.11-0.59); #Neutrophils 12.7 thou/uL (1.40-6.50); %Basophils 0.3 % (0.0-1.0); %Eosinophils 1.5 % (0.0-10.0); %Lymphocytes 6.7 % (21.0-51.0); %Neutrophils 83.5 % (42.0-75.0); Hemoglobin 10.6 g/dL (12.0-16.0); Mean Corpuscular HGB CONC 32.5 g/dL (32.0-36.0); Mean Corpuscular Hemoglobin 31.1 pg (27.0-31.0); Mean Corpuscular Volume 95.5 fL (78.0-98.0); Mean Platelet Volume 6.2 fL (7.4-10.4); Platelet Count 215 thou/uL (130-400); RBC Distribution Width 12.5 % (11.5-14.5); White Blood Cell (WBC) Count 15.2 thou/uL (4.8-10.8)
[2017-11-28] MEDS ORDERED: Levothyroxine Sodium 25 MCG TAB PO SCH (06:00)
[2017-11-28] MEDS: Ondansetron HCl/PF 4 MG/2 ML Vial IVP PRN ×2 (06:09→14:38)
[2017-11-28] MEDS: Mometasone/Formoterol 120 PUFF INHALER INH SCH ×2 (06:28→20:03)
[2017-11-28] MEDS ORDERED: Glucosamine/Msm/Chondroitin A [Glucosamine Chondroitin Msm] PO SCH (09:00)
[2017-11-28] MEDS ORDERED: Loratadine 10 MG TAB PO SCH (09:00)
[2017-11-28] MEDS ORDERED: Zinc Sulfate 220 MG CAP PO SCH (09:00)
[2017-11-28] MEDS ORDERED: Magnesium Oxide 400 MG TAB PO SCH (09:00)
[2017-11-28] MEDS ORDERED: guaiFENesin/Dextromethorphan 10 ML UDCUP PO PRN (10:09)
[2017-11-28] MEDS: Dicyclomine 10 MG CAP PO SCH ×4 (10:34→21:24)
[2017-11-28] MEDS: Lithium Carbonate 150 MG CAP PO SCH ×2 (10:34→21:23)
[2017-11-28] MEDS: guaiFENesin ER 600 MG TAB PO SCH ×2 (10:35→21:23)
[2017-11-28] MEDS: Benztropine 1 MG TAB PO SCH ×3 (10:35→21:23)
[2017-11-28] MEDS: Fish Oil 1,000 MG CAP PO SCH ×2 (10:35→21:22)
[2017-11-28] MEDS: hydrOXYzine 25 MG TAB PO SCH ×3 (10:35→21:23)
[2017-11-28] MEDS: Ascorbic Acid 500 mg Chewable Tablet PO SCH ×2 (10:35→21:23)
[2017-11-28] MEDS: Acetylcysteine 20% 200 MG/ML 30 ML VIAL PO SCH ×2 (11:03→21:22)
[2017-11-28] MEDS: Fluticasone Propionate Nasal Spray 16 gm Bottle NASAL SCH ×2 (11:04→21:24)
[2017-11-28] MEDS: Sodium Chloride 0.9% 1,000 ML IV SCH (12:41)
--- NOTE | 2017-11-28 13:57 | PRG ---
DATE OF SERVICE: 11/28/2017 SUBJECTIVE: Ms. Obrien is postop day #1 following lumbar fusion and decompression. She is overal l doing well. She has not slept very well last night secondary to pain, but her pain has been well c ontrolled with fentanyl patch and morphine. I also have IV Toradol ordered as well, which seems to h ave made the difference in her pain level. She has been out of bed twice so far, but is very slow to ambulate and is actually very unsteady on her feet. For this purpose, Rehab consult was ordered. Keisha Silvestre has already seen her and supports rehab decisions. Case management has already submitted paperwork to begin this process. to check her protein and globulin levels given the last time that we d id operation on her ulnar nerve and all of this looks to be within normal limits. We will continue t o monitor this process. I discussed this with her as well. She does bring up because of irrit ation likely secondary to ET tube. We will add antitussive in the form of Robitussin.
[2017-11-28 15:55] VITALS: BP 106/71; TEMP 98.8
[2017-11-28] MEDS: Montelukast Sodium 10 mg Tablet PO SCH (21:23)
== END 2017-11-28 21:25 ==
LOC: SDC 06:10 → SURG A 09:27
PROVIDERS: ADMIT Neurological Surgery; ATTEND Neurological Surgery
PROC: 0SG0071 Fusion of Lumbar Vertebral Joint with Autologous Tissue Substitute, Posterior Approach, Posterior Column, Open Approach (ICD-10-PCS; principal; 2017-11-27)
DX: M48.061 Spinal stenosis, lumbar region without neurogenic claudication (principal); M51.36 Other intervertebral disc degeneration, lumbar region; M43.16 Spondylolisthesis, lumbar region; Z88.5 Allergy status to narcotic agent; Z88.0 Allergy status to penicillin
CPT/HCPCS: 20931; 20936; 22612; 22840; 76001; 80053; 85025; 94640 ×2; 96374; 96375 ×2; 96376 ×2; 97110; 97116; 97139 ×3; 97530 ×2; 97535; C1713 ×2; G0378; G8978; G8980; G8987; G8988; 36415; J0670; J1885; J2001; J2250; J2270; J2405; J2704; J3010; J3370; J7608; J7620

== ENCOUNTER 2018-05-26 07:28 | Day surgery (SDC) | payer MEDICARE ==
--- NOTE | 2018-05-25 13:26 | HP ---
HISTORY OF PRESENT ILLNESS: Ms. Obrien is known to us for several evaluations of both lumbar, cervical, and peripheral nerve issues with several surgeries in the past. She returns now with significant right L4 pain, that matched well by a new MRI from [facility] reveals right L3-L4 lateral recess stenosis. She hopes to move forward with surgical intervention to treat this at this time. PAST MEDICAL HISTORY: Significant for seasonal allergies, asthma, gastroesophageal reflux disease, bipolar disorder, fibromyalgia, chronic pain disorder, intractable migraines. PAST SURGICAL HISTORY: Cholecystectomy, knee surgery, wrist surgery, ACDF, right shoulder surgery, left hand surgery, hysterectomy, ulnar nerve decompression bilaterally, gastric bypass, occipital nerve trial and lumbar decompression. CURRENT MEDICATIONS: 1. Zyrtec. 2. Symbicort. 3. Dexilant. 4. Carafate. 5. Latuda. 6. Singulair. 7. Flonase. 8. Cozaar. 9. Zofran. 10. Tapentadol. 11. Ergotamine. 12. Pregabalin. 13. Diclofenac. 14. Clonazepam. ALLERGIES: 1. NORCO. 2. PENICILLIN. 3. PREDNISONE. PHYSICAL EXAMINATION: GENERAL: The patient is alert and oriented x3. MUSCULOSKELETAL: Gait is antalgic and slow. Lower extremity motor exam is normal. ASSESSMENT: Lumbar stenosis with lumbar radiculopathy. PLAN: Dr. Guillen met with the patient, reviewed imaging, and advocated for right L3-L4 decompression. He explained to the patient the risks, benefits, and alternatives of the procedure. The patient expressed understanding and elected to move forward with surgery as discussed. I do believe the patient is mentally competent and capable of making medical decisions for herself. We will move forward with surgery as planned. Job ID: [id number]
[2018-05-25 13:48] VITALS: BMI 40.1
[2018-05-26] MEDS ORDERED: Bupivacaine HCl 0.5%/Epinephrine 1:200,000/PF 30 ml Vial ONE (08:15)
[2018-05-26 09:05] LABS: Anion Gap 13 mmol/L (10-20); BUN (Urea Nitrogen) 15 mg/dL (9.8-20.1); Calc. Creatinine Clearance 121 mL/min (70-130); Calcium 9.2 mg/dL (7.8-10.44); Carbon Dioxide 22 mmol/L (22-29); Chloride 107 mmol/L (98-107); Estimated GFR-MDRD 61; Glucose 123 mg/dL (70-105); Potassium 3.9 mmol/L (3.5-5.1); Sodium 138 mmol/L (136-145)
[2018-05-26] MEDS ORDERED: CEFAZOLIN 2 GM/50 ML BAG ONE ×2 (09:14→13:09)
[2018-05-26] MEDS ORDERED: Midazolam HCl 2 mg/2 ml Vial ONE (09:19)
[2018-05-26] MEDS ORDERED: KETAMINE 100 MG/ML (5ML VIAL) ONE (09:27)
[2018-05-26] MEDS ORDERED: Fentanyl 250 MCG/5 ML VIAL ONE (09:27)
[2018-05-26] MEDS ORDERED: Fentanyl 100 MCG/2 ML VIAL ONE ×2 (11:09→11:35)
[2018-05-26] MEDS ORDERED: HYDROcodone/Acetaminophen 5/325 mg Tablet ONE (13:09)
[2018-05-26] MEDS ORDERED: PROPOFOL 200 MG/20 ML VIAL ONE (14:55)
[2018-05-26] MEDS ORDERED: Succinylcholine Chloride 20 MG/ML 10 ml SYRINGE FS ONE (14:55)
[2018-05-26] MEDS ORDERED: Glycopyrrolate 0.2 MG/ML 5 ML SYRINGE ONE (14:55)
--- NOTE | 2018-05-26 16:28 | OP ---
DATE OF PROCEDURE: 05/26/2018 EXTRUSION PRESS SUPERVISOR: Maico Barber PA-C INDICATION: Pain. DIAGNOSIS: Right L4 radiculopathy. PROCEDURE PERFORMED: Right L3-L4 decompression. ANESTHESIA: General. DESCRIPTION OF PROCEDURE: The patient was brought into the operating room and placed under general anesthesia. She was flipped from the supine to prone position on the operating room table. A linear incision was planned at L3-L4. After prepping and draping and after preoperative pause, the incision was created. The soft tissues were swept right of midline. A self-retaining retractor was placed for optimal exposure. After confirming the appropriate level, C-arm fluoroscopy, high-speed cutting drill bit, as well as 1, 2, and 3 mm Kerrisons were used to perform hemilaminectomies along the inferior aspect of L3 and the superior aspect of L4. This was extended laterally to encompass the medial third of the facet joint in order to adequately decompress the lateral recess. The wound was then irrigated. Hemostasis was maintained throughout. The wound was then closed in anatomic layers and a pressure dressing was applied. There were no known procedural complications. Job ID: [id number]
== END 2018-05-26 14:22 | disposition home or self-care (01) ==
LOC: SDC 07:28
PROVIDERS: ATTEND Neurological Surgery
PROC: 01NB0ZZ Release Lumbar Nerve, Open Approach (ICD-10-PCS; principal; 2018-05-26)
DX: M54.16 Radiculopathy, lumbar region (principal); M48.061 Spinal stenosis, lumbar region without neurogenic claudication; F31.9 Bipolar disorder, unspecified; F17.290 Nicotine dependence, other tobacco product, uncomplicated; J45.909 Unspecified asthma, uncomplicated; K21.9 Gastro-esophageal reflux disease without esophagitis; M79.7 Fibromyalgia; G43.909 Migraine, unspecified, not intractable, without status migrainosus; Z88.0 Allergy status to penicillin; Z88.8 Allergy status to other drugs, medicaments and biological substances; Z91.040 Latex allergy status; Z98.1 Arthrodesis status; Z98.890 Other specified postprocedural states; Z79.51 Long term (current) use of inhaled steroids; Z79.899 Other long term (current) drug therapy; Z98.84 Bariatric surgery status
CPT/HCPCS: 76000; 80048; 96374; J0670; J2250; J2704; J3010

== ENCOUNTER 2018-06-23 10:21 | Day surgery (SDC) | payer MEDICARE ==
[2018-06-22 16:41] VITALS: BMI 40.3
[2018-06-23] MEDS ORDERED: Lidocaine 1% PF 5 ML VIAL ONE (11:45)
[2018-06-23] MEDS ORDERED: Ondansetron PF 4 MG/2 ML Vial ONE (11:45)
[2018-06-23] MEDS ORDERED: PROPOFOL 200 MG/20 ML VIAL ONE (11:45)
[2018-06-23] MEDS ORDERED: PHENYLEPHRINE-NS 100 MCG/ML 10 ML SYRINGE ONE (11:45)
[2018-06-23] MEDS ORDERED: Dexamethasone 20 MG/5 ML VIAL ONE (11:45)
[2018-06-23] MEDS ORDERED: Oxymetazoline HCl 0.05% ( 15 ML ) ONE ×2 (12:32→14:41)
[2018-06-23] MEDS ORDERED: Midazolam HCl 2 mg/2 ml Vial ONE (13:22)
[2018-06-23] MEDS ORDERED: Lidocaine 1% w/Epinephrine 1:100K 20 ML VIAL ONE (14:41)
[2018-06-23] MEDS ORDERED: Fentanyl 100 MCG/2 ML VIAL ONE ×3 (14:45→15:57)
[2018-06-23] MEDS ORDERED: Hydrocodone-Acetamin 15 ML UDCUP ONE (16:57)
--- NOTE | 2018-06-24 09:59 | OP ---
DATE OF PROCEDURE: 06/23/2018 PREOPERATIVE DIAGNOSES: 1. Chronic rhinosinusitis. 2. Allergic fungal sinusitis. 3. Bilateral nasal polyposis. POSTOPERATIVE DIAGNOSES: 1. Chronic rhinosinusitis. 2. Allergic fungal sinusitis. 3. Bilateral nasal polyposis. PROCEDURES PERFORMED: 1. Bilateral endoscopic sinus surgery, total ethmoidectomy with removal of tissue. 2. Bilateral endoscopic sinus surgery, frontal sinusotomy with removal of tissues. 3. Bilateral endoscopic resection of nasal polyps. 4. LandmarX image-guided cranial base navigational surgery. ESTIMATED BLOOD LOSS: 20 mL. COMPLICATIONS: None. ANESTHESIA: GETA. DESCRIPTION OF PROCEDURE: The patient was taken to the operating room, placed supine on the table. General endotracheal anesthesia was obtained by the Anesthesia Staff. Tube was secured in the left lower lip. The patient was placed in a beach chair position. Following this, the [employer] Interactive image-guided system was set up, calibrated, was noted to be within 0.1 mm of accuracy. Following this, the 0-degree scope was advanced in the nasal cavity. There were multiple nasal polyps, which were obstructing approximately 80% of the entire nasal airway. The internal ethmoidal cells and frontal cells were completely opacified by the intraoperative CT imaging. 1% lidocaine with 1:100,000 epinephrine was injected into the middle turbinates, inferior turbinates, lateral nasal wall and obvious nasal polyps. Using the 0-degree microdebrider and the navigational computer, the polyps were removed beginning from the posterior aspect working forward to the anterior aspect. The sphenoid sinus ostia was patent. However, nasal polyps were removed from the sphenoid sinuses bilaterally. Working posterior to anterior, the ethmoidal cells were further opened. Using a 40-degree microdebrider blade with a navigational base system along with 45-degree endoscope, the frontal sinus recess was reopened and the frontal sinus ostia was reopened. Nasal polyps and allergic fungal debris was removed from the frontal sinuses bilaterally. Following this, the previous maxillary antrostomies were visualized and noted to be enlarged. There was small polypoid changes of the maxillary sinus mucosa inferiorly but none that indicated biopsy or resection. Following this, the nasal cavity was irrigated. Mirapex was placed in the middle meatus. The patient tolerated the procedure well. Job ID: [id number]
--- NOTE | 2018-06-25 08:55 | EKG ---
Test Reason : PREOP Blood Pressure : / mmHG Vent. Rate : 065 BPM Atrial Rate : 065 BPM P-R Int : 198 ms QRS Dur : 090 ms QT Int : 444 ms P-R-T Axes : 062 065 040 degrees QTc Int : 461 ms Normal sinus rhythm Normal ECG When compared with ECG of 01-JUL-2017 09:51, No significant change was found Confirmed by DR. Rowan PARHAM ([id number]) on 06/25/2018 8:55:19 AM Referred By: BETTY Confirmed By:DR. Rowan PARHAM
== END 2018-06-23 17:21 | disposition home or self-care (01) ==
LOC: SDC 10:21 → MERGE 13:23 → SDC 17:21
PROVIDERS: ATTEND Otolaryngology Plastic Surgery within the Head & Neck
PROC: 8E09XBZ Computer Assisted Procedure of Head and Neck Region (ICD-10-PCS; principal; 2018-06-23)
PROC: 09BT8ZZ Excision of Left Frontal Sinus, Via Natural or Artificial Opening Endoscopic (ICD-10-PCS; 2018-06-23)
PROC: 09BS8ZZ Excision of Right Frontal Sinus, Via Natural or Artificial Opening Endoscopic (ICD-10-PCS; 2018-06-23)
PROC: 09TV8ZZ Resection of Left Ethmoid Sinus, Via Natural or Artificial Opening Endoscopic (ICD-10-PCS; 2018-06-23)
PROC: 09TU8ZZ Resection of Right Ethmoid Sinus, Via Natural or Artificial Opening Endoscopic (ICD-10-PCS; 2018-06-23)
DX: J32.9 Chronic sinusitis, unspecified (principal); J30.89 Other allergic rhinitis; J33.9 Nasal polyp, unspecified; F31.9 Bipolar disorder, unspecified; J44.9 Chronic obstructive pulmonary disease, unspecified; K21.9 Gastro-esophageal reflux disease without esophagitis; G47.30 Sleep apnea, unspecified; F41.9 Anxiety disorder, unspecified; G43.909 Migraine, unspecified, not intractable, without status migrainosus; I95.1 Orthostatic hypotension; Z87.891 Personal history of nicotine dependence; Z79.51 Long term (current) use of inhaled steroids; Z79.899 Other long term (current) drug therapy; Z88.0 Allergy status to penicillin; Z88.1 Allergy status to other antibiotic agents; Z88.8 Allergy status to other drugs, medicaments and biological substances; Z91.048 Other nonmedicinal substance allergy status; Z98.84 Bariatric surgery status
CPT/HCPCS: 85014; 93005; 93010; J1100; J2001; J2250; J2405; J2704; J3010

== ENCOUNTER 2018-08-11 04:45 | Outpatient (CLI) | payer MEDICARE ==
[2018-08-11 15:38] LABS: Anion Gap 14 mmol/L (10-20); BUN (Urea Nitrogen) 14 mg/dL (9.8-20.1); Calc. Creatinine Clearance 0 mL/min (70-130); Calcium 9.2 mg/dL (7.8-10.44); Carbon Dioxide 28 mmol/L (22-29); Chloride 105 mmol/L (98-107); Estimated GFR-MDRD 67; Glucose 98 mg/dL (70-105); Potassium 4.5 mmol/L (3.5-5.1); Sodium 142 mmol/L (136-145)
== END 2018-08-11 04:46 | disposition home or self-care (01) ==
LOC: LABBT 04:45
PROVIDERS: ATTEND Neurological Surgery
DX: Z01.812 Encounter for preprocedural laboratory examination (principal); M54.12 Radiculopathy, cervical region
CPT/HCPCS: 80048

== ENCOUNTER 2018-08-18 06:22 | Day surgery (SDC) | payer MEDICARE ==
[2018-08-11 14:02] VITALS: BMI 42.7
--- NOTE | 2018-08-17 16:26 | HP ---
HISTORY OF PRESENT ILLNESS: Ms. Obrien is a 53-year-old woman known to us for several previous cervical and lumbar surgeries, who presents now with continued cervical radicular pain with a new CT and MRI revealing foraminal stenosis to the left at C4-C5 that match the shoulder and interscapular pain she is having. She has treated this consistently and chronically over the past several years with injections and therapy with little to no relief and hopes to move forward now with surgery if possible. PAST MEDICAL HISTORY: Seasonal allergies, asthma, gastroesophageal reflux disease, bipolar disorder, fibromyalgia, chronic pain disorder and intractable migraines. PAST SURGICAL HISTORY: Cholecystectomy, knee surgery, wrist surgery, ACDF, right shoulder surgery, left hand surgery, hysterectomy, ulnar nerve decompression bilaterally, gastric bypass, occipital nerve trial, lumbar decompression x2. CURRENT MEDICATIONS: Zyrtec, Symbicort, Dexilant, Carafate, Latuda, Singulair, Flonase, Cozaar, Zofran, tapentadol, ergotamine, pregabalin, diclofenac, and clonazepam. ALLERGIES: NORCO, PENICILLIN, PREDNISONE. PHYSICAL EXAMINATION: GENERAL: The patient is alert and oriented x3. MUSCULOSKELETAL: Gait is normal. No ataxia. Cervical range of motion is reduced secondary to pain. She has preserved range of motion of the bilateral upper extremities and preserved strength as well. Reflexes are equally present bilaterally at the biceps and triceps. ASSESSMENT: Cervical radiculopathy. PLAN: Dr. Guillen met with the patient, reviewed imaging, advocated for left C4-C5 foraminotomy. He explained to the patient the risks, benefits, and alternatives to the procedure. The patient expressed understanding and elected to move forward with surgery as discussed. I do believe the patient is mentally competent capable of making medical decisions for herself. We will move forward with surgery as planned. Job ID: [id number]
[2018-08-18] MEDS ORDERED: Midazolam HCl 2 mg/2 ml Vial ONE (07:52)
[2018-08-18] MEDS ORDERED: Ondansetron PF 4 MG/2 ML Vial ONE ×2 (07:52→15:51)
[2018-08-18] MEDS ORDERED: Bupivacaine HCl 0.5%/Epinephrine 1:200,000/PF 30 ml Vial ONE (07:55)
[2018-08-18] MEDS ORDERED: Fentanyl 100 MCG/2 ML VIAL ONE ×3 (08:37→11:06)
[2018-08-18] MEDS ORDERED: Promethazine HCl 25 MG/ML VIAL ONE ×2 (10:20→12:19)
[2018-08-18] MEDS ORDERED: Morphine 4 MG/ML VIAL ONE (10:55)
[2018-08-18] MEDS ORDERED: HYDROcodone/Acetaminophen 5/325 mg Tablet ONE (11:34)
[2018-08-18] MEDS ORDERED: Sodium Chloride 0.9% 10 ML ONE (12:19)
[2018-08-18] MEDS ORDERED: Rocuronium Bromide 10 MG/ML (10ML VIAL) ONE (15:51)
[2018-08-18] MEDS ORDERED: Metoclopramide HCl 10 MG/2 ML VIAL ONE (15:51)
[2018-08-18] MEDS ORDERED: Dexamethasone 20 MG/5 ML VIAL ONE (15:51)
[2018-08-18] MEDS ORDERED: PROVENTIL INHALER 6.7 G (200 INHALATIONS) ONE (15:51)
[2018-08-18] MEDS ORDERED: Lidocaine 1% PF 5 ML VIAL ONE ×2 (15:51)
[2018-08-18] MEDS ORDERED: Glycopyrrolate 0.2 MG/ML 5 ML SYRINGE ONE (15:51)
[2018-08-18] MEDS ORDERED: PROPOFOL 200 MG/20 ML VIAL ONE (15:51)
[2018-08-18] MEDS ORDERED: PHENYLEPHRINE-NS 100 MCG/ML 10 ML SYRINGE ONE (15:51)
--- NOTE | 2018-08-19 15:07 | OP ---
DATE OF PROCEDURE: 08/18/2018 METAL CUT OFF SAW OPERATOR: Maico Barber PA-C INDICATION: Pain. DIAGNOSIS: Cervical radiculopathy. PROCEDURE PERFORMED: Left C4-C5 foraminotomy. ANESTHESIA: General. DESCRIPTION OF PROCEDURE: The patient was brought into the operating room and placed under general anesthesia. She was flipped from the supine to prone position on operating room table. A linear incision was planned over the C4-C5 segment. After prepping and draping and after an appropriate preoperative pause, the incision was created. The soft tissues were swept left of midline. Self-retaining retractor was placed for optimal exposure. After confirming the appropriate level with C-arm fluoroscopy, C4-C5 foraminotomy was performed of the exiting nerve root to the C5 nerve. The laminectomy and medial facetectomy were completed using 1 and 2 mm Kerrisons into the exiting C5 nerve root was well decompressed. The wound was irrigated. Hemostasis was maintained throughout. The wound was then closed in anatomic layers and a pressure dressing was applied. There were no known procedural complications. Job ID: [id number]
== END 2018-08-18 13:30 | disposition home or self-care (01) ==
LOC: SDC 06:22
PROVIDERS: ATTEND Neurological Surgery
PROC: 01N10ZZ Release Cervical Nerve, Open Approach (ICD-10-PCS; principal; 2018-08-18)
DX: M54.12 Radiculopathy, cervical region (principal); M48.02 Spinal stenosis, cervical region; K21.9 Gastro-esophageal reflux disease without esophagitis; F31.9 Bipolar disorder, unspecified; M79.7 Fibromyalgia; G43.919 Migraine, unspecified, intractable, without status migrainosus; F17.290 Nicotine dependence, other tobacco product, uncomplicated; J44.9 Chronic obstructive pulmonary disease, unspecified; Z79.899 Other long term (current) drug therapy; Z88.0 Allergy status to penicillin; Z88.8 Allergy status to other drugs, medicaments and biological substances; Z98.890 Other specified postprocedural states
CPT/HCPCS: 76000; J0131; J0670; J1100; J2001; J2250; J2270; J2405; J2550; J2704; J2765; J3010

== ENCOUNTER 2018-08-27 11:21 | Outpatient (CLI) | payer MEDICARE ==
--- NOTE | 2018-08-27 11:45 | RAD ---
EXAM: Chest one view: Abdomen 2 views: HISTORY: Abdominal pain, history of bowel obstruction COMPARISON: Chest x-ray, 08/11/2017 FINDINGS: Postop pedicle screws at L2-L3. No significant acute process in the chest. 2 views of the abdomen show gas and fecal material in the colon. No free intraperitoneal air. No overt calculi. IMPRESSION: No acute process in the chest and abdomen.
== END 2018-08-27 11:22 | disposition home or self-care (01) ==
LOC: BICRAD 11:21
PROVIDERS: ATTEND Family Medicine
DX: R10.9 Unspecified abdominal pain (principal); R19.15 Other abnormal bowel sounds; K59.01 Slow transit constipation; Z87.19 Personal history of other diseases of the digestive system
CPT/HCPCS: 36415; 74022; 80048; 82728; 85025

== ENCOUNTER 2018-09-02 13:42 | Outpatient (CLI) | payer MEDICARE ==
--- NOTE | 2018-09-02 16:00 | RAD ---
LUMBAR SPINE 3 VIEWS: Date: 09/02/18 Lateral views obtained with neutral, flexion, and extension positions. INDICATION: Low back pain. History of prior surgery. COMPARISON: 01/07/18. FINDINGS: Pedicle screws are again noted at L2 and L3. There is disc narrowing and degenerative changes at L1-2 , L2-3, and L3-4. There is slight posterolisthesis at L2-3, which was noted previously, measuring eusebio roximately 5.0 mm in the neutral position. This may reduce slightly with flexion. No other change from prior study. IMPRESSION: Postoperative and degenerative changes of the lumbar spine noted. Posterolisthesis at the L2-3 level is noted. POS: [facility]
== END 2018-09-02 13:43 | disposition home or self-care (01) ==
LOC: TBSIIMAG 13:42
PROVIDERS: ATTEND Neurological Surgery
DX: M54.5 Low back pain (principal); M47.816 Spondylosis without myelopathy or radiculopathy, lumbar region; M43.16 Spondylolisthesis, lumbar region; Z98.890 Other specified postprocedural states
CPT/HCPCS: 72100

== ENCOUNTER 2018-11-03 10:45 | Outpatient (CLI) | payer MEDICARE ==
--- NOTE | 2018-11-03 13:52 | CT ---
CT LUMBAR SPINE WITHOUT CONTRAST: 11/03/18 COMPARISON: 04/13/18. HISTORY: Lumbar spine pain. Pain radiates across the lower back. TECHNIQUE: Noncontrast CT lumbar spine is performed in the axial plane. Sagittal and coronal reformatted images are submitted for interpretation. FINDINGS: Five lumbar type vertebral bodies. Lumbar spine vertebral body height is maintained. No fracture. St able bilateral transpedicular screws at L3 and L4. 3.6 mm of retrolisthesis of L2 upon L3 (previously 2.5 mm). Stable irregularity on the superior end plate of T12, compatible with Schmorl's node. Lumbar spine vertebral body height is maintained. There is no fracture. Appropriate signal intensity in the visualized solid organs. The visualized alimentary canal is unrem arkable. Symmetric attenuation of the paraspinal muscles. Limited evaluation of the contents of the central spinal canal and neural foramina due to technique. T11-T12 and T12-L1: No significant central canal stenosis. Neural foramina are patent. L1-L2: Vacuum disc phenomenon. Generalized disc bulge, ligamentum flavum thickening and facet hypertr ophy result in mild central canal stenosis. Mild bilateral neural foraminal narrowing. L2-L3: Vacuum disc phenomenon. Generalized disc bulge, minimal ligamentum flavum thickening and facet hypertrophy result in mild central canal stenosis. The degree of central canal stenosis has not sig nificantly progressed when compared to the previous exam. Moderate right and mild to moderate left ne ural foraminal narrowing. L3-L4: Generalized disc bulge, ligamentum flavum thickening and facet hypertrophy result in mild cent ral canal stenosis. There is narrowing of the right subarticular zone with presumed mass effect upon the traversing right L4 nerve root. Mild to moderate bilateral neural foraminal narrowing. L4-L5: Generalized disc bulge, ligamentum flavum thickening and facet hypertrophy result in mild to m oderate central canal stenosis. Mild to moderate bilateral neural foraminal narrowing. L5-S1: There is a generalized disc bulge with a central/left subarticular component. There is narrowi ng of the left subarticular zone with presumed mass effect upon the traversing left S1 nerve root. O verall, there is mild central canal stenosis. Mild bilateral neural foraminal narrowing. The disc ext rusion into the left subarticular zone has developed since the previous examination. At the mid porti on of L5, the normal fat in the left subarticular zone is effaced which may in part be due to disc ma terial secondary to superior disc extrusion into the left subarticular zone. Previously noted fluid in the posterior midline subcutaneous fat has decreased. Small amount of resid ual fluid and scar tissue do remain. IMPRESSION: 1. Stable lumbar fusion. 2. No evidence of fracture. 3. Varying degrees of central canal stenosis and foraminal narrowing as detailed above. Interval development of an inferior disc extrusion at L5-S1 with presumed mass effect upon the traversing lef t S1 nerve root. 4. Redemonstration of retrolisthesis of L2 upon L3. 5. Obscuration of the normal fat in the left subarticular zone at the mid portion of L5 which ma y be secondary to superior disc extrusion. Correlation made with postmyelogram CT 08/04/17 that does d emonstrate slight asymmetric narrowing in retrospect. This appears to be due to posterior element and ligamentum flavum thickening hypertrophy as well as disc material. Further evaluation with MRI may b e beneficial. POS: OFF
== END 2018-11-03 10:46 | disposition home or self-care (01) ==
LOC: BICCT 10:45
PROVIDERS: ATTEND Neurological Surgery
DX: M54.5 Low back pain (principal); M48.061 Spinal stenosis, lumbar region without neurogenic claudication; M48.07 Spinal stenosis, lumbosacral region; M51.27 Other intervertebral disc displacement, lumbosacral region; M43.16 Spondylolisthesis, lumbar region; Z98.1 Arthrodesis status
CPT/HCPCS: 72131

== ENCOUNTER 2018-11-05 07:29 | Outpatient (CLI) | payer MEDICARE ==
--- NOTE | 2018-11-05 09:19 | MRI ---
MRI LEFT SHOULDER: 11/05/2018 PROVIDED CLINICAL HISTORY: Left shoulder pain. COMPARISON: 06/10/2011 FINDINGS: Susceptibility artifact is seen in the region of the lesser tuberosity, interval from prior study. T here is high-grade partial thickness, predominantly interstitial tearing, involving the distal conjoi modesto tendon, at the foot plate. There is greater than physiologic subacromial/subdeltoid bursal fluid . There is fatty infiltration of the teres minor muscle. Rotator cuff muscular volume appears other gipson preserved. The components of the rotator cuff appear otherwise intact. The longhead biceps tendon appears intact and normally located. The glenoid labrum and glenohumeral articular cartilage are suboptimally evaluated in the absence of joint distention but appear grossly normal. The amount of fluid within the glenohumeral joint is physiologic. Acromioclavicular joint osteoarthrosis is demonstrated without significant mass effect upon the subja cent supraspinatus. IMPRESSION: 1. High-grade partial thickness, predominantly interstitial tearing, involving the distal conjoined tendon, at the footplate. Bodlywf-hepu-xulfzcitjue subacromial/subdeltoid bursal fluid may reflect a n occult full-thickness component to this tear. The anterior distal supraspinatus tendon at the foot plate is poorly evaluated on the basis of post surgical change. 2. Fatty infiltration of the teres minor muscle, which may reflect chronic denervation. POS: OFF
== END 2018-11-05 07:30 | disposition home or self-care (01) ==
LOC: BICMRI 07:29
PROVIDERS: ATTEND Orthopaedic Surgery
DX: M75.112 Incomplete rotator cuff tear or rupture of left shoulder, not specified as traumatic (principal)

== ENCOUNTER 2018-11-12 13:30 | Outpatient (CLI) | payer MEDICARE ==
[2018-11-12 14:18] LABS: #Basophils 0.1 thou/uL (0.0-0.2); #Monocytes 0.8 thou/uL (0.11-0.59); #Neutrophils 4.5 thou/uL (1.40-6.50); %Basophils 1.4 % (0.0-1.0); %Eosinophils 11.7 % (0.0-10.0); %Monocytes 9.6 % (0.0-10.0); %Neutrophils 53.4 % (42.0-75.0); Hemoglobin 14.3 g/dL (12.0-16.0); Mean Corpuscular Hemoglobin 31.4 pg (27.0-31.0); Mean Platelet Volume 6.9 fL (7.4-10.4); Platelet Count 258 thou/uL (130-400); RBC Distribution Width 12.1 % (11.5-14.5); Red Blood Cell (RBC) Count 4.54 mill/uL (4.20-5.40); White Blood Cell (WBC) Count 8.5 thou/uL (4.8-10.8)
[2018-11-12 14:36] LABS: Anion Gap 13 mmol/L (10-20); BUN (Urea Nitrogen) 14 mg/dL (9.8-20.1); Calc. Creatinine Clearance 0 mL/min (70-130); Calcium 8.7 mg/dL (7.8-10.44); Carbon Dioxide 24 mmol/L (22-29); Chloride 105 mmol/L (98-107); Estimated GFR-MDRD 64; Glucose 104 mg/dL (70-105); Potassium 4.3 mmol/L (3.5-5.1); Sodium 138 mmol/L (136-145)
== END 2018-11-12 13:31 | disposition home or self-care (01) ==
LOC: LABBT 13:30
PROVIDERS: ATTEND Orthopaedic Surgery
DX: Z01.812 Encounter for preprocedural laboratory examination (principal); M75.102 Unspecified rotator cuff tear or rupture of left shoulder, not specified as traumatic
CPT/HCPCS: 80048; 85025

== ENCOUNTER 2018-11-19 06:53 | Day surgery (SDC) | payer MEDICARE ==
[2018-11-12 13:58] VITALS: BMI 40.3
[2018-11-19] MEDS ORDERED: Clindamycin/D5W 600 mg/50 ml Premix Bag ONE (07:08)
[2018-11-19] MEDS ORDERED: Midazolam HCl 2 mg/2 ml Vial ONE (07:59)
[2018-11-19] MEDS ORDERED: Fentanyl 100 MCG/2 ML VIAL ONE ×2 (07:59→11:59)
[2018-11-19] MEDS ORDERED: Ondansetron PF 4 MG/2 ML Vial ONE ×2 (08:18→15:03)
[2018-11-19] MEDS ORDERED: Scopolamine 1.5 mg/72 hour Patch ONE (08:18)
[2018-11-19] MEDS ORDERED: Famotidine/PF 20 mg/2ml Vial ONE (08:19)
[2018-11-19] MEDS ORDERED: traMADol HCl 50 MG TAB PO PRN ×2 (09:23)
[2018-11-19] MEDS ORDERED: Promethazine HCl 25 MG/ML VIAL IM PRN (09:23)
[2018-11-19] MEDS ORDERED: Ondansetron PF 4 MG/2 ML Vial IVP PRN (09:23)
[2018-11-19] MEDS ORDERED: Fentanyl 100 MCG/2 ML VIAL IV PRN (09:23)
[2018-11-19] MEDS ORDERED: HYDROcodone/Acetaminophen 10/325 mg Tablet PO PRN ×2 (09:23)
[2018-11-19] MEDS ORDERED: Zolpidem Tartrate 5 MG TAB PO PRN (09:23)
[2018-11-19] MEDS ORDERED: Ropivacaine 0.2% 550 ML 550 ML NERVE BLCK SCH (09:23)
[2018-11-19] MEDS ORDERED: Promethazine HCl 25 MG/ML VIAL ONE (11:31)
--- NOTE | 2018-11-19 12:03 | OP ---
DATE OF PROCEDURE: 11/19/2018 PREOPERATIVE DIAGNOSIS: Rotator cuff tear, left shoulder. POSTOPERATIVE DIAGNOSIS: Rotator cuff tear, left shoulder. PROCEDURE PERFORMED: Arthroscopic subacromial decompression, arthroscopic rotator cuff repair using 2 Arthrex suture anchors, corkscrew type and 1 SwiveLock double row type repair. ANESTHESIA: General. ESTIMATED BLOOD LOSS: Minimal. SPECIMEN: None. DRAINS: None. COMPLICATIONS: None. DESCRIPTION OF PROCEDURE: The patient was taken to the operating room, where general anesthesia was induced. She was placed in right lateral decubitus position. Left arm was prepped and draped in usual sterile fashion after placement of traction. Glenohumeral joint was examined and found to be essentially free of disease other than a full-thickness rotator cuff tear. Biceps tendon was in good condition. Scope was placed in the subacromial bursa. CA ligament was taken down. Bursectomy was performed. Anteroinferior acromioplasty was performed. Cup was mobilized. There was a longitudinal split type tear. I placed 2 [id number] repairs using Orthocord. I then placed suture anchors laterally through the bone and repaired by passing sutures approximately Orthocord sewn down to freshen bleeding bone. This was reinforced with a double row type repair. The shoulder was drained, ports were closed with nylon suture. Sterile dressings applied. Job ID: [id number]
[2018-11-19] MEDS ORDERED: HYDROcodone/Acetaminophen 5/325 mg Tablet ONE (13:29)
[2018-11-19] MEDS ORDERED: Ropivacaine 0.5% HCl/PF (150 MG/30 ML VIAL) ONE (14:52)
[2018-11-19] MEDS ORDERED: Ropivacaine 0.2% HCl/PF (40 MG/20 ML VIAL) ONE (14:52)
[2018-11-19] MEDS ORDERED: PROPOFOL 200 MG/20 ML VIAL ONE (15:03)
[2018-11-19] MEDS ORDERED: Rocuronium Bromide 10 MG/ML (10ML VIAL) ONE (15:03)
[2018-11-19] MEDS ORDERED: Lidocaine 1% PF 5 ML VIAL ONE (15:03)
[2018-11-19] MEDS ORDERED: Glycopyrrolate 0.2 MG/ML 5 ML SYRINGE ONE (15:03)
== END 2018-11-19 14:10 | disposition home or self-care (01) ==
LOC: SDC 06:53
PROVIDERS: ATTEND Orthopaedic Surgery
PROC: 0LQ24ZZ Repair Left Shoulder Tendon, Percutaneous Endoscopic Approach (ICD-10-PCS; principal; 2018-11-19)
PROC: 0RNK4ZZ Release Left Shoulder Joint, Percutaneous Endoscopic Approach (ICD-10-PCS; 2018-11-19)
PROC: 3E0T3BZ Introduction of Anesthetic Agent into Peripheral Nerves and Plexi, Percutaneous Approach (ICD-10-PCS; 2018-11-19)
DX: M75.122 Complete rotator cuff tear or rupture of left shoulder, not specified as traumatic (principal); S93.402A Sprain of unspecified ligament of left ankle, initial encounter; G89.18 Other acute postprocedural pain; F31.9 Bipolar disorder, unspecified; J44.9 Chronic obstructive pulmonary disease, unspecified; G47.33 Obstructive sleep apnea (adult) (pediatric); G43.909 Migraine, unspecified, not intractable, without status migrainosus; K21.9 Gastro-esophageal reflux disease without esophagitis; M54.2 Cervicalgia; G89.29 Other chronic pain; Z98.84 Bariatric surgery status; Z98.1 Arthrodesis status; Z87.891 Personal history of nicotine dependence; Z88.0 Allergy status to penicillin; Z88.1 Allergy status to other antibiotic agents; Z88.8 Allergy status to other drugs, medicaments and biological substances; Z91.040 Latex allergy status; Z79.51 Long term (current) use of inhaled steroids; Z79.891 Long term (current) use of opiate analgesic; Z79.899 Other long term (current) drug therapy; X58.XXXA Exposure to other specified factors, initial encounter
CPT/HCPCS: 29826; 29827; 64416; 97139; A4306; C1713 ×2; J0131; J2001; J2250; J2405; J2550; J2704; J2795; J3010; J3490; S0028

== ENCOUNTER 2018-12-31 05:48 | Day surgery (SDC) | payer MEDICARE ==
[2018-12-30 13:45] VITALS: BMI 42.7
--- NOTE | 2018-12-31 00:47 | HP ---
HISTORY OF PRESENT ILLNESS: Ms. Obrien is a 53-year-old woman known to us for several previous lumbar and cervical procedures who returns now with significant lower extremity pains that would fit in the S1 pattern. She has a new CT of the lumbar spine from [place]. It reveals an L5 disk herniation with mild superior migration that would impinge upon the descending S1 nerve root . She has already treated this with medications and physical therapy and is unable to epidural steroid injections and would like to go for surgery if possible. PAST MEDICAL HISTORY: Significant for seasonal allergies, asthma, gastroesophageal reflux disease, bipolar disorder, fibromyalgia, chronic pain disorder, intractable migraines. PAST SURGICAL HISTORY: Cholecystectomy, knee surgery, wrist surgery, ACDF, right shoulder surgery, left hand surgery, hysterectomy, ulnar nerve decompression, gastric bypass, occipital nerve trials, lumbar decompression x2, lumbar fusion. CURRENT MEDICATIONS: 1. Zyrtec. 2. Symbicort. 3. Dexilant. 4. Carafate. 5. Latuda. 6. Singulair. 7. Flonase. 8. Cozaar. 9. Zofran. 10. Tapentadol. 11. Ergotamine. 12. Pregabalin. 13. Diclofenac. 14. Clonazepam. ALLERGIES: NORCO, PENICILLIN, AND PREDNISONE. PHYSICAL EXAMINATION: GENERAL: The patient is alert and oriented x3. MUSCULOSKELETAL: Gait is severely antalgic. Lower extremity motor exam is normal. She has positive bilateral straight leg raise. ASSESSMENT: Lumbar radiculopathy. PLAN: Dr. Guillen met with the patient, reviewed her imaging and advocated for L5 disk decompression with possible diskectomy. He explained to the patient the risks, benefits, and alternatives to the procedure. The patient expressed understanding and elected to move forward with surgery as discussed. I do believe the patient is mentally competent and capable of making medical decisions for herself. We will move forward with surgery as planned. Job ID: [id number]
[2018-12-31] MEDS ORDERED: ceFAZolin Sodium (SDC) 2 GM/100 ML BAG ONE (06:04)
[2018-12-31] MEDS ORDERED: Bupivacaine HCl 0.5%/Epinephrine 1:200,000/PF 30 ml Vial ONE (06:16)
[2018-12-31] MEDS ORDERED: Clindamycin/D5W 900 mg/50 ml Premix Bag ONE (06:39)
[2018-12-31] MEDS ORDERED: Midazolam HCl 2 mg/2 ml Vial ONE (06:41)
[2018-12-31] MEDS ORDERED: Fentanyl 250 MCG/5 ML VIAL ONE (06:54)
[2018-12-31 07:04] LABS: Anion Gap 14 mmol/L (10-20); BUN (Urea Nitrogen) 15 mg/dL (9.8-20.1); Calc. Creatinine Clearance 137 mL/min (70-130); Calcium 9.3 mg/dL (7.8-10.44); Carbon Dioxide 23 mmol/L (22-29); Chloride 102 mmol/L (98-107); Estimated GFR-MDRD 66; Glucose 112 mg/dL (70-105); Sodium 135 mmol/L (136-145)
--- NOTE | 2018-12-31 08:16 | OP ---
DATE OF PROCEDURE: 12/31/2018 PROGRAM ASSOCIATE: Maico Barber PA-C. INDICATION: Pain. DIAGNOSIS: Lumbar radiculopathy, lateral recess stenosis, L5. ANESTHESIA: General. PROCEDURES PERFORMED: Bilateral L5 hemilaminectomies, medial facetectomies. DESCRIPTION OF PROCEDURE: The patient was brought into the operating room and placed under general anesthesia. She was flipped from the supine to prone position on operating room table. A linear incision was planned at L5. After prepping and draping and after an appropriate preoperative pause, the incision was created. The soft tissues were swept away from midline. A self-retaining retractor was placed in the wound for optimal exposure. After confirming the appropriate level with C-arm fluoroscopy, high-speed cutting drill bit as well as 2, 3, and 4 mm Kerrisons were used to perform laminectomies extending from the inferior aspect of L5 and the superior aspect of S1 on the left and on the right. The midline structures were left intact, namely the spinous process as well as the anterior and supraspinous ligaments. The laminectomy defects were extended laterally to encompass the medial aspect of the facet joint in order to decompress the descending S1 nerve roots bilaterally. No diskectomy was performed as the disk protuberant was not a significant contributor at that point. After decompressing bilaterally, the wound was irrigated. Hemostasis was maintained throughout. The wound was then closed in anatomic layers and a pressure dressing was applied. There were no known procedural complications. Job ID: [id number]
[2018-12-31] MEDS ORDERED: Fentanyl 100 MCG/2 ML VIAL ONE ×3 (08:39→10:21)
[2018-12-31] MEDS ORDERED: HYDROcodone/Acetaminophen 5/325 mg Tablet ONE (11:15)
== END 2018-12-31 12:05 | disposition home or self-care (01) ==
LOC: SDC 05:48
PROVIDERS: ATTEND Neurological Surgery
PROC: 01NB0ZZ Release Lumbar Nerve, Open Approach (ICD-10-PCS; principal; 2018-12-31)
DX: M48.061 Spinal stenosis, lumbar region without neurogenic claudication (principal); M54.16 Radiculopathy, lumbar region; J45.909 Unspecified asthma, uncomplicated; K21.9 Gastro-esophageal reflux disease without esophagitis; F31.9 Bipolar disorder, unspecified; M79.7 Fibromyalgia; G89.29 Other chronic pain; Z79.51 Long term (current) use of inhaled steroids; Z79.899 Other long term (current) drug therapy; Z88.5 Allergy status to narcotic agent; Z88.0 Allergy status to penicillin
CPT/HCPCS: 76000; 80048; J0670; J0690; J2250; J3010; J3490

== ENCOUNTER 2019-01-06 11:49 | Emergency (ER) | payer MEDICARE ==
[2019-01-06] MEDS ORDERED: Ketorolac Tromethamine 30 MG/ML VIAL ONE (12:28)
--- NOTE | 2019-01-06 14:28 | RAD ---
LEFT HUMERUS 2 VIEWS: Date: 01/06/19 HISTORY: Pain. FINDINGS: Several internal fixation screws stabilize the humerus trochanteric region. No acute fracture or disl ocation. IMPRESSION: Postsurgical changes involving the humerus. No fracture or dislocation. POS: EN
== END 2019-01-06 12:40 | disposition home or self-care (01) ==
LOC: SCSER 11:49
DX: M79.602 Pain in left arm (principal)
CPT/HCPCS: 96372; J1885

== ENCOUNTER 2019-07-28 07:29 | Outpatient (CLI) | payer MEDICARE ==
--- NOTE | 2019-07-28 08:19 | RAD ---
3 views of the lumbar spine: 07/28/2019 COMPARISON: None HISTORY: Extreme low back pain when flexing or extending, right lower extremity radiculopathy FINDINGS: Lateral neutral, flexion, and extension views provided. Posterior fusion hardware noted at the L2-3 level. There is disc space narrowing with degenerative endplate change and anterior osteophyte formation at L1-2, L2-3, and L3-4. Multilevel lower lumbar spine facet hypertrophy. On the neutral exam there is retrolisthesis measuring 6-7 mm at L2-3 and L3-4. With flexion there is 4-5 mm of retrolisthesis at L2-3 and 6 mm of retrolisthesis at L3-4. The extension imaging demonstrates r etrolisthesis of the millimeters at L2-3 and 6 mm at L3-4. IMPRESSION: Multilevel degenerative change within the lumbar spine as detailed above.
--- NOTE | 2019-07-28 10:32 | MRI ---
CERVICAL SPINE MRI WITHOUT CONTRAST: HISTORY: Cervical radiculopathy. COMPARISON: 04/18/2013. FINDINGS: Interval removal of an anterior fusion plate at C4-C5. Currently, there is a disk prosthesis at C4-C 5 and C5-C6 with associated metallic susceptibility artifact. There is evidence of type II Modic donnell nge at the C3-C4, C4-C5, and C5-C6 disk space. SPONDYLOLISTHESIS: C2-C3: 2.5 mm of anterolisthesis. C3-C4: 1.5 mm of anterolisthesis. The visualized brain parenchyma, upper cervical cord, and the upper thoracic cord have a normal size and signal intensity. There are T2 hyperintensities and STIR hyperintensities involving the cervical cord at the C5-C6 level. C2-C3: No significant central canal stenosis or significant neural foraminal narrowing. C3-C4: Broad-based disk-osteophyte complex abuts the thecal sac. Subarachnoid space is maintained. Mild central canal stenosis. Moderate bilateral neural foraminal narrowing due to uncovertebral hyp ertrophy. C4-C5: Disk prosthesis. Broad-based osteophyte ridge. Moderate central canal stenosis. Moderate t o severe bilateral foraminal narrowing due to uncovertebral hypertrophy. C5-C6: Broad-based osteophyte ridge. Moderate central canal stenosis. Moderate to severe bilateral foraminal narrowing. T2 hyperintensity in the cervical cord compatible with an area of gliosis. C6-C7: Broad-based disk-osteophyte complex abuts the thecal sac. Moderate central canal stenosis. Mild to moderate bilateral neural foraminal narrowing. C7-T1: No significant central canal stenosis or significant neural foraminal narrowing. IMPRESSION: 1. Cervical fusion at C4-C5 and C5-C6. Associated type II Modic changes. 2. Small focus of gliosis involving the cervical cord at the C5-C6 level. 3. Moderate central canal stenosis at C4-C5, C5-C6, and C6-C7. 4. Multilevel significant neural foraminal narrowing as described above. POS: CET
== END 2019-07-28 07:30 | disposition home or self-care (01) ==
LOC: TBSIIMAG 07:29
PROVIDERS: ATTEND Neurological Surgery
DX: M47.26 Other spondylosis with radiculopathy, lumbar region (principal); M54.12 Radiculopathy, cervical region; G95.89 Other specified diseases of spinal cord; M48.02 Spinal stenosis, cervical region; Z98.1 Arthrodesis status
CPT/HCPCS: 72100; 72141

== ENCOUNTER 2019-11-14 08:39 | Outpatient (CLI) | payer MEDICARE, OTHER ==
[2019-11-15 12:19] LABS: SARS-CoV-2 MS2 Positive; SARS-CoV-2 N Gene Negative; SARS-CoV-2 S Gene Negative; SARS-CoV-2 orf1ab Negative
== END 2019-11-14 08:40 | disposition home or self-care (01) ==
LOC: LABBT 08:39
PROVIDERS: ATTEND Neurological Surgery
DX: Z01.812 Encounter for preprocedural laboratory examination (principal); Z11.59 Encounter for screening for other viral diseases; M54.12 Radiculopathy, cervical region
CPT/HCPCS: 87635; U0003

== ENCOUNTER 2019-11-14 08:45 | Outpatient (CLI) | payer MEDICARE, OTHER ==
[2019-11-14] MEDS ORDERED: Iopamidol 370 76% 100 ML VIAL ONE (09:39)
--- NOTE | 2019-11-14 10:47 | CT ---
CT OF THE ABDOMEN AND PELVIS WITH IV CONTRAST INDICATION: Epigastric abdominal pain with weight loss COMPARISON: Prior exam dated October 11, 2016 FINDINGS: ABDOMEN: Lung bases: Clear Liver: The small hypodensity seen within segment 5 of the right hepatic lobe on the comparison examin ation is less conspicuous and may reflect a small hemangioma or a hepatic cyst that is slightly reduced in size from the prior exam. No new focal hepatic lesion is evident. Gallbladder: Surgically absent Pancreas: Mild fatty infiltration. Adrenal glands: Normal. Spleen: Normal. Kidneys and ureters: Normal. No hydronephrosis. Vasculature: There are mild vascular calcifications seen involving the visualized vasculature. Lymph nodes:No lymphadenopathy. Free fluid in abdomen:No free fluid is evident. PELVIS: Small and large bowel: There is a mild amount retained stool within the colon. There is postsurgical change of a prior gastroplasty. The small bowel is of normal caliber. Appendix:Normal Bladder: Normal. Rectal and perirectal soft tissues:Normal. Reproductive structures: Surgically absent Free fluid in pelvis: No free fluid is evident. Lymphadenopathy pelvis: No lymphadenopathy is evident. Osseous structures: No acute fractures evident. There is postsurgical change of a posterior lateral i nterbody fusion of L2-3. There is scattered degenerative and osteoarthritic changes. Soft tissues:Normal. IMPRESSION: 1. No CT explanation for the patient's epigastric abdominal pain. 2. Small suspected hemangioma or tiny cyst within the right hepatic lobe. 3. Mild amount retained stool within the colon.
== END 2019-11-14 08:46 | disposition home or self-care (01) ==
LOC: TBSIIMAG 08:45 → CT 08:46
PROVIDERS: ATTEND Physician Assistant Medical
DX: K59.09 Other constipation (principal); R10.13 Epigastric pain; R63.4 Abnormal weight loss; R11.0 Nausea
CPT/HCPCS: 74177; 87635; Q9967; U0003

== ENCOUNTER 2019-11-16 07:20 | Day surgery (SDC) | payer MEDICARE ==
[2019-11-11 10:33] VITALS: BMI 35.9
--- NOTE | 2019-11-15 13:16 | HP ---
HISTORY OF PRESENT ILLNESS: Ms. Obrien is known to us for several neck and lower back problems that we treated surgically in most instances, who presents now with a left-sided C7 radiculopathy with new MRI revealing evidence of foraminal stenosis at C6-C7 on that side. She hopes to go ahead and treat this surgically if possible as she has extensive history of failure of other conservative treatments prior. PAST MEDICAL HISTORY: Significant for allergies, asthma, reflux, bipolar disorder, fibromyalgia, chronic pain disorder, intractable migraines. PAST SURGICAL HISTORY: Cholecystectomy, unspecified knee surgery, unspecified wrist surgery, ACDF, right shoulder surgery, left hand surgery, hysterectomy, ulnar nerve decompression bilaterally, gastric bypass, occipital nerve trial, lumbar decompression x2. CURRENT MEDICATIONS: 1. Zyrtec. 2. Symbicort. 3. Dexilant. 4. Carafate. 5. Latuda. 6. Singulair. 7. Flonase. 8. Cozaar. 9. Zofran. 10. Tapentadol. 11. Ergotamine. 12. Pregabalin. 13. Diclofenac. 14. Clonazepam. ALLERGIES: NORCO, PENICILLIN, AND PREDNISONE. PHYSICAL EXAMINATION: The patient is alert and oriented x3. Positive Spurling's to the left. ASSESSMENT: Cervical radiculopathy. PLAN: Dr. Guillen met with the patient, reviewed imaging, and advocated for a left C6-C7 posterior decompression, foraminotomy. He explained to the patient the risks, benefits, and alternatives to the procedure. The patient expressed understanding and elected move forward with surgery as discussed. I do believe that the patient is mentally competent and capable of making medical decisions for herself. We will move forward with surgery as planned. Job ID: [id number]
[2019-11-16] MEDS ORDERED: Bupivacaine PF 0.5% 30 ML VIAL ONE (08:29)
[2019-11-16] MEDS ORDERED: EPINEPHrine 1 MG/ML AMP ONE (08:29)
[2019-11-16] MEDS ORDERED: Fentanyl 100 MCG/2 ML VIAL ONE ×2 (08:48→12:15)
[2019-11-16] MEDS ORDERED: Clindamycin/D5W 900 mg/50 ml Premix Bag ONE (08:52)
[2019-11-16] MEDS ORDERED: Ketamine 50 MG/ML (10ML VIAL) ONE (09:00)
[2019-11-16] MEDS ORDERED: Scopolamine 1.5 mg/72 hour Patch ONE (09:12)
[2019-11-16] MEDS ORDERED: Ondansetron PF 4 MG/2 ML Vial ONE (09:44)
[2019-11-16] MEDS ORDERED: Rocuronium Bromide 10 MG/ML (10ML VIAL) ONE (09:44)
[2019-11-16] MEDS ORDERED: PROPOFOL 200 MG/20 ML VIAL ONE (09:44)
[2019-11-16] MEDS ORDERED: Glycopyrrolate 0.2 MG/ML 5 ML SYRINGE ONE (09:44)
[2019-11-16] MEDS ORDERED: Promethazine HCl 25 MG/ML VIAL ONE (10:46)
[2019-11-16] MEDS ORDERED: HYDROcodone/Acetaminophen 5/325 mg Tablet ONE (14:54)
--- NOTE | 2019-11-17 12:59 | OP ---
DATE OF PROCEDURE: 11/16/2019 ALLERGY SPECIALIST: Maico Barber PA-C INDICATION: Pain. DIAGNOSIS: Cervical radiculopathy. PROCEDURE PERFORMED: Posterior cervical C6-C7 foraminotomies. ANESTHESIA: General. DESCRIPTION OF PROCEDURE: The patient was brought into the operating room and placed under general anesthesia. She was flipped from the supine to prone position on the operating room table. A linear incision was planned over the C6-C7 region. After prepping and draping and after an appropriate preoperative pause, the incision was created. The soft tissues were swept away from midline. Self-retaining retractors were placed in the wound for optimal exposure. After confirming the appropriate level with C-arm fluoroscopy, high-speed cutting drill bit as well as 1 and 2 mm Kerrisons were used to perform foraminotomies over the exiting C7 nerve roots bilaterally. After completing the decompression, the wound was irrigated. Hemostasis was maintained throughout. The wound was then closed in anatomic layers, and a pressure dressing was applied. There were no known procedural complications. Job ID: [id number]
== END 2019-11-16 15:05 | disposition home or self-care (01) ==
LOC: SDC 07:20
PROVIDERS: ATTEND Neurological Surgery
PROC: 01N10ZZ Release Cervical Nerve, Open Approach (ICD-10-PCS; principal; 2019-11-16)
DX: M54.12 Radiculopathy, cervical region (principal); M48.02 Spinal stenosis, cervical region; K21.9 Gastro-esophageal reflux disease without esophagitis; F31.9 Bipolar disorder, unspecified; F17.200 Nicotine dependence, unspecified, uncomplicated; J44.9 Chronic obstructive pulmonary disease, unspecified; G89.4 Chronic pain syndrome; G43.919 Migraine, unspecified, intractable, without status migrainosus; G47.33 Obstructive sleep apnea (adult) (pediatric); M79.7 Fibromyalgia; Z79.899 Other long term (current) drug therapy; Z88.0 Allergy status to penicillin; Z88.1 Allergy status to other antibiotic agents; Z88.8 Allergy status to other drugs, medicaments and biological substances; Z91.040 Latex allergy status; Z98.1 Arthrodesis status; Z98.84 Bariatric surgery status
CPT/HCPCS: 76000; J0171; J2405; J2550; J2704; J3010; J3490; S0020

== ENCOUNTER 2021-05-15 12:00 | Emergency (ER) | payer MEDICARE ==
[2021-05-15] MEDS ORDERED: Ketorolac Tromethamine 30 MG/ML VIAL ONE (14:43)
== END 2021-05-15 16:49 | disposition home or self-care (01) ==
LOC: ERS 12:00
DX: S80.01XA Contusion of right knee, initial encounter (principal); J44.9 Chronic obstructive pulmonary disease, unspecified; E11.9 Type 2 diabetes mellitus without complications; K21.9 Gastro-esophageal reflux disease without esophagitis; E03.9 Hypothyroidism, unspecified; Z87.891 Personal history of nicotine dependence; Z79.51 Long term (current) use of inhaled steroids; Z79.899 Other long term (current) drug therapy
CPT/HCPCS: 96372; J1885

== ENCOUNTER 2021-10-28 08:31 | Outpatient (CLI) | payer MEDICARE ==
[2021-10-28 09:59] LABS: Anion Gap 14 mmol/L (10-20); BUN (Urea Nitrogen) 11 mg/dL (9.8-20.1); Calc. Creatinine Clearance 0 mL/min (70-130); Calcium 9.2 mg/dL (7.8-10.44); Carbon Dioxide 26 mmol/L (22-29); Chloride 103 mmol/L (98-107); Glucose 107 mg/dL (70-105); Potassium 4.7 mmol/L (3.5-5.1); Sodium 138 mmol/L (136-145)
== END 2021-10-28 08:32 | disposition home or self-care (01) ==
LOC: LABBT 08:31
PROVIDERS: ATTEND Neurological Surgery
DX: Z01.818 Encounter for other preprocedural examination (principal); M54.16 Radiculopathy, lumbar region; Z20.822 Contact with and (suspected) exposure to COVID-19
CPT/HCPCS: 80048; 93005; U0003; U0005; 93010

== ENCOUNTER 2021-10-30 05:48 | Day surgery (SDC) | payer MEDICARE ==
[2021-10-28 10:37] VITALS: BMI 41.4
[2021-10-30] MEDS ORDERED: Thrombin 5000 UNITS/5 ML VIAL ONE (06:10)
[2021-10-30] MEDS ORDERED: Bupivacaine PF 0.5% 30 ML VIAL ONE (06:10)
[2021-10-30] MEDS ORDERED: EPINEPHrine 1 MG/ML AMP ONE (06:10)
[2021-10-30] MEDS ORDERED: Scopolamine 1.5 mg/72 hour Patch ONE (06:29)
[2021-10-30] MEDS ORDERED: Promethazine HCl 25 MG/ML VIAL ONE (06:29)
[2021-10-30] MEDS ORDERED: Famotidine/PF 20 mg/2ml Vial ONE (06:29)
[2021-10-30] MEDS ORDERED: fentaNYL Citrate/PF 100 MCG/2 ML SYRINGE ONE (06:36)
[2021-10-30] MEDS ORDERED: Vancomycin (BATCH) 1.5 GRAM/300 ML BAG ONE (06:55)
[2021-10-30] MEDS ORDERED: Fentanyl 100 MCG/2 ML VIAL ONE (09:05)
[2021-10-30] MEDS ORDERED: HYDROcodone/Acetaminophen 5/325 mg Tablet ONE (10:27)
== END 2021-10-30 11:28 | disposition home or self-care (01) ==
LOC: SDC 05:48
PROVIDERS: ATTEND Neurological Surgery
PROC: 01NB0ZZ Release Lumbar Nerve, Open Approach (ICD-10-PCS; principal; 2021-10-30)
DX: M51.16 Intervertebral disc disorders with radiculopathy, lumbar region (principal); M25.78 Osteophyte, vertebrae; M48.061 Spinal stenosis, lumbar region without neurogenic claudication; E11.9 Type 2 diabetes mellitus without complications; M19.90 Unspecified osteoarthritis, unspecified site; J44.9 Chronic obstructive pulmonary disease, unspecified; G47.33 Obstructive sleep apnea (adult) (pediatric); K21.9 Gastro-esophageal reflux disease without esophagitis; Z87.891 Personal history of nicotine dependence; Z79.84 Long term (current) use of oral hypoglycemic drugs; Z79.899 Other long term (current) drug therapy; Z79.890 Hormone replacement therapy; Z88.0 Allergy status to penicillin; Z88.1 Allergy status to other antibiotic agents; Z88.2 Allergy status to sulfonamides; Z88.8 Allergy status to other drugs, medicaments and biological substances; Z91.040 Latex allergy status; Z98.84 Bariatric surgery status; Z98.1 Arthrodesis status
CPT/HCPCS: 63047; 63048; 76000; C1713; J3370; J0171; J2550; J3010; S0020; S0028

== ENCOUNTER 2021-12-16 11:06 | Emergency (ER) | payer MEDICARE ==
[2021-12-16] MEDS ORDERED: Ketorolac Tromethamine 30 MG/ML VIAL ONE (13:13)
== END 2021-12-16 13:30 | disposition home or self-care (01) ==
LOC: ERS 11:06
DX: M25.562 Pain in left knee (principal); J44.9 Chronic obstructive pulmonary disease, unspecified; K21.9 Gastro-esophageal reflux disease without esophagitis; E03.9 Hypothyroidism, unspecified; E11.43 Type 2 diabetes mellitus with diabetic autonomic (poly)neuropathy; K31.84 Gastroparesis; Z87.891 Personal history of nicotine dependence; Z86.73 Personal history of transient ischemic attack (TIA), and cerebral infarction without residual deficits; Z79.899 Other long term (current) drug therapy
CPT/HCPCS: 96372; J1885

== ENCOUNTER 2022-01-31 08:03 | Outpatient (CLI) | payer MEDICARE | END 2022-01-31 08:04 | disposition home or self-care (01) | LOC: NM 08:03 | PROVIDERS: ATTEND Orthopaedic Surgery | DX: M23.307 Other meniscus derangements, unspecified meniscus, left knee (principal) | CPT/HCPCS: 78306; A9503 ==

== ENCOUNTER 2022-05-18 10:52 | Emergency (ER) | payer MEDICARE, OTHER ==
[2022-05-18] MEDS ORDERED: Ketorolac Tromethamine 30 MG/ML VIAL ONE (11:41)
[2022-05-18] MEDS ORDERED: Orphenadrine Citrate 60 MG/2 ML VIAL ONE (11:43)
[2022-05-18] MEDS ORDERED: HYDROcodone/Acetaminophen 5/325 mg Tablet ONE (12:46)
== END 2022-05-18 13:19 | disposition home or self-care (01) ==
LOC: ERS 10:52
DX: M79.672 Pain in left foot (principal); M62.838 Other muscle spasm; E11.9 Type 2 diabetes mellitus without complications; J44.9 Chronic obstructive pulmonary disease, unspecified; K21.9 Gastro-esophageal reflux disease without esophagitis; E03.9 Hypothyroidism, unspecified; G43.909 Migraine, unspecified, not intractable, without status migrainosus; W10.1XXA Fall (on)(from) sidewalk curb, initial encounter; Z87.891 Personal history of nicotine dependence
CPT/HCPCS: 96372; J1885; J2360

== ENCOUNTER 2022-06-04 07:32 | Outpatient (CLI) | payer OTHER ==
[2022-06-04] MEDS ORDERED: Iopamidol-370 76% 500 ML 1 ML ONE (09:04)
== END 2022-06-04 07:33 | disposition home or self-care (01) ==
LOC: BICCT 07:32
PROVIDERS: ATTEND Physician Assistant Medical
DX: R10.10 Upper abdominal pain, unspecified (principal); K21.9 Gastro-esophageal reflux disease without esophagitis; R63.4 Abnormal weight loss; R11.2 Nausea with vomiting, unspecified; K76.89 Other specified diseases of liver
CPT/HCPCS: 74177; 82565; Q9967